=== PATIENT | female | born 1945 | race Caucasian/White ===

== ENCOUNTER 2016-09-11 08:48 | Outpatient (CLI) | payer MEDICARE, BC ==
[~2016-09-11] VITALS: Ht 167.6 cm; Wt 79.5 kg
--- NOTE | ~2016-09-11 | HEMODYNAMI ---
PATIENT:CELENA TOMPKINS MEDICAL RECORD: [id number] : 47 LOCATION:D.CAT ADMISSION DATE: 09/11/16 Generatedon:09/11/201612:48 Patient name: CELENA TOMPKINS Patient #: [id number] SSN: : 1945 Date of study: 09/11/2016 Page: Of Hemodynamic Procedure Report Patient Data Patient Demographics Procedure consent was obtained First Name: CELENA Gender: Female Last Name: TURNER : 1945 Middle Initial: A Age: 71 year(s) Patient #: [id number] Race: Additional ID: [id number] Contact details Address: [address] [place] [address] State: [place] City: [place] Zip code: [address] Past Medical History History of disease Date Diagnosis Comments CAD Allergies Allergen Reaction Date Comments Reported Sulfa drugs 12/26/2014 Sulfa drugs 09/11/2016 Admission Admission Data Admission Date: 09/11/2016 Admission Time: 8:48 Lab Results Lab Result Date: 09/11/2016 Lab Result Time: 0:00 Biochemistry Name Units Result Min Max Creatinine mg/dl 1.1 --(--*-)-- 0.6 1.3 CBC Name Units Result Min Max Hemoglobin g/dl 10.7 *-(----)-- 13.5 17.5 Procedure Procedure Types Cath Procedure Diagnostic Procedure [facility] w/Coronaries FFR/IVUS Intra-Coronary IVUS Initial PCI Procedure Coronary Stent Initial Miscellaneous Procedures Moderate Sedation up to 30 minutes Procedure Description Procedure Date Procedure Date: 09/11/2016 Procedure Start Time: 12:28 Procedure End Time: 12:48 Procedure Staff Name Function Rosales Whyte MD Performing Physician Filipe Sotomayor RT Scrub Mariaa Christine RN Nurse Enma Mejia RT Monitor Procedure Data Cath Procedure Fluoroscopy Diagnostic fluoroscopy Total fluoroscopy Time: 4 time: 4 min min Diagnostic fluoroscopy Total fluoroscopy dose: 381 dose: 381 mGy mGy Contrast Material Contrast Material Type Amount (ml) Isovue 300 94 Entry Location Entry Primary Successful Side Size Upsize Upsize Entry Closure Succes sful Closure Location (Fr) 1 (Fr) 2 (Fr) Remarks Device Remarks Femoral Right 5 Fr 6 Fr Exoseal artery Short Estimated blood loss: 10 ml Diagnostic catheters Device Type Used For End Catheter Placement Cordis 5Fr Pigtail LV Angiography Catheter (MP) Cordis 5Fr JL 4.0 Left Coronary Catheter (MP) Angiography Cordis 5Fr 3DRC Catheter Right Coronary (MP) Angiography Procedure Complications No complications Procedure Medications Medication Administration Route Dosage Oxygen NC 2 l/min Heparin Flush Bag added to field 2 bags (1000units/500ml NS) Lidocaine 2% added to field 20 Versed I.V. 1 mg Fentanyl I.V. 50 mcg Versed I.V. 1 mg Fentanyl I.V. 50 mcg Fentanyl I.V. 50 mcg Versed I.V. 1 mg Heparin Bolus I.V. 4000 units Hemodynamics Rest HGB: 10.7 (g/dl) Heart Rate: 63 (bpm) Snapshots Pre Cath Intra NCS Post Cath Vital Signs Time Heart Resp SPO2 etCO2 [id number] NIBP (mmHg) Rhythm Pain Sedation Rate (ipm) (%) (mmHg) (mmHg) Status Level (bpm) 12:08:19 64 23 100 0 0 144/77(124) NSR 0 (11) 10(A) , No pain 12:13:19 63 16 100 0 0 Measuring NSR 0 (11) 10(A) , No pain 12:13:22 63 16 99 0 0 133/68(104) NSR 0 (11) 10(A) , No pain 12:17:41 62 16 95 0 0 134/71(115) NSR 0 (11) 10(A) , No pain 12:22:01 61 16 96 0 0 125/65(88) NSR 0 (11) 10(A) , No pain 12:26:17 62 16 97 0 0 130/65(88) NSR 0 (11) 10(A) , No pain 12:30:31 61 16 98 0 0 114/73(94) NSR 0 (11) 10(A) , No pain 12:34:42 63 16 98 0 0 126/65(92) NSR 0 (11) 9(A) , No pain 12:38:59 65 16 98 0 0 133/62(91) NSR 0 (11) 9(A) , No pain 12:42:56 65 16 98 0 0 123/67(99) NSR 0 (11) 9(A) , No pain 12:47:10 66 19 98 0 0 129/65(108) NSR 0 (11) 10(A) , No pain Medications Time Medication Route Dose Verified Delivered Reason Notes Effectiveness by by 12:07:20 Oxygen NC 2 Rosales Mariaa Per physician l/min Isabell Christine RN 12:07:27 Heparin Flush added 2 Rosales Rosales used for Bag to bags Isabell Whyte MD procedure (1000units/500ml field NS) 12:07:34 Lidocaine 2% added 20ml Rosales Rosales used for to vial Isabell Whyte MD procedure field 12:27:18 Versed I.V. 1 mg Rosales Mariaa for sedation Isabell Christine RN 12:27:24 Fentanyl I.V. 50 Rosales Mariaa for sedation mcg Isabell Christine RN 12:29:14 Versed I.V. 1 mg Rosales Mariaa for sedation Isabell Christine RN 12:29:21 Fentanyl I.V. 50 Rosales Mariaa for sedation mcg Isabell Christine RN 12:31:29 Fentanyl I.V. 50 Rosales Mariaa for sedation mcg Isabell Christine RN 12:31:37 Versed I.V. 1 mg Rosales Mariaa for sedation Isabell Christine RN 12:39:20 Heparin Bolus I.V. 4000 Rosales Mariaa for dose units Isabell Christine RN anticoagulation verified [facility] whyte Procedure Log Time Note 11:56:01 Enma Counts RT(R) sent for patient. Start room use. 11:56:02 Time tracking: Regular hours 11:56:07 Plan of Care:Hemodynamics will remain stable., Cardiac rhythm will remain stable., Comfort level will be maintained., Respiratory function will remain adequate., Patient/ family verbilizes understanding of procedure., Procedure tolerated without complication., Recovers from procedure without complications.. 12:06:34 Patient received from Pre/Post Procedure Room to [facility] 1 Alert and oriented. Tansferred to table in Supine position. 12:06:35 Warm blankets applied, and shea hugger turned on for patient comfort. 12:06:36 Correct patient and procedure confirmed by team. 12:06:37 Signed procedure consent form obtained from patient. 12:06:38 ECG and BP/O2 sat monitors applied to patient. 12:06:39 Full Disclosure recording started 12:07:12 Vital chart was started 12:07:20 Oxygen 2 l/min NC was administered by Mariaa Christine RN; Per physician; 12:07:27 Heparin Flush Bag (1000units/500ml NS) 2 bags added to field was administered by Rosales Whyte MD; used for procedure; 12:07:34 Lidocaine 2% 20ml vial added to field was administered by Rosales Whyte MD; used for procedure; 12:12:58 Baseline sample Acquired. 12:13:03 Rhythm: sinus rhythm 12:13:18 H&P Date Dictated: 09/10/2016 Within 30 days and on chart., H&P Addendum completed by physician on day of procedure. (MUST COMPLETE FOR ALL OUTPATIENTS). 12:13:21 Pre-procedure instructions explained to patient. 12:13:21 Pre-op teaching completed and patient verbalized understanding. 12:13:23 Family in patients room. 12:13:25 Patient NPO since Midnight. 12:13:34 Patient allergic to Sulfa drugs 12:13:36 Is the patient allergic to Iodine/contrast media? No. 12:13:40 Is patient on blood thinner?Yes 12:13:42 ACC The patient was administered the following blood thiners within the last 24 hours: ACCPlavix 12:14:05 Patient diabetic? No. 12:14:08 Previous problem with sedation/anesthesia? No ? 12:14:09 Snore? Yes 12:14:10 Sleep apnea? No 12:14:11 Deviated septum? No 12:14:12 Opens mouth fully? Yes 12:14:13 Sticks out tongue? Yes 12:14:18 Dentures? Yes ? 12:14:19 Airway obstruction? No ? 12:14:24 Pre procedure: right dorsailis pedis pulse 2+ Normal; easily identifiable; not easily obliterated 12:14:26 Patient pain scale 0/10 ?. 12:14:33 IV patent on arrival in left hand with 0.9% NaCl at KVO. 12:18:48 Lab Result : Hemoglobin 10.7 g/dl 12:18:48 Lab Result : Creatinine 1.1 mg/dl 12:18:55 Lab results completed and on chart. 12:18:59 Right groin area was prepped with chlora-prep and draped in sterile fashion 12:19:00 Alarms reviewed by R. N. 12:19:01 Sharps counted by scrub and verified by R.N. 12:19:06 Use device set Femoral Dx 12:19:07 Acist Syringe opened to sterile field. 12:19:08 Bag Decanter opened to sterile field. 12:19:08 Medline Cath Pack opened to sterile field. 12:19:09 Terumo 5Fr Ridge[place]st Sheath opened to sterile field. 12:19:09 St Ben 260cm J .035 wire opened to sterile field. 12:19:10 Acist Hand Control opened to sterile field. 12:19:11 Acist Manifold opened to sterile field. 12:19:11 Diagnostic Infinity 5Fr Multipack catheter opened to sterile field. 12:19:12 Tegaderm 4 x 4 opened to sterile field. 12:19:44 Physician paged 12:24:15 Zero performed for pressure channel P1 12:25:18 Zero performed for pressure channel P1 12:25:27 Zero performed for pressure channel P1 12:26:56 Final Timeout: patient, procedure, and site verified with staff and physician. All members of the team are in agreement. 12:27:00 Right groin site verified by team. 12:27:03 Physical assessment completed. ASA score P 2 - A patient with mild systemic disease as per Rosales Whyte MD. 12:27:05 Sedation plan: IV Moderate Sedation Versed, Fentanyl 12::18 Versed 1 mg I.V. was administered by Mariaa Christine RN; for sedation; 12::24 Fentanyl 50 mcg I.V. was administered by Mariaa Christine RN; for sedation; 12::17 Procedure started. 12::20 Local anesthetic to right femoral artery with Lidocaine 2% by Rosales Whyte MD.INITIAL ACCESS ONLY 12::14 Versed 1 mg I.V. was administered by Mariaa Christine RN; for sedation; :14 A 5 Fr sheath was inserted into the Right Femoral artery 12:29:20 A Cordis 5Fr Pigtail Catheter (MP) was advanced over the wire and used for LV Angiography. 12:29:21 Fentanyl 50 mcg I.V. was administered by Mariaa Christine RN; for sedation; 12:30:01 LV gram done using JC 12:30:04 Injector settings: Ml/sec: 10, Volume: 20, 12:30:09 EF : 60 % 12:30:10 Catheter removed. 12:30:18 A Cordis 5Fr JL 4.0 Catheter (MP) was advanced over the wire and used for Left Coronary Angiography. 12:31:01 Catheter removed. 12:31:09 A Cordis 5Fr 3DRC Catheter (MP) was advanced over the wire and used for Right Coronary Angiography. 12:31:29 Fentanyl 50 mcg I.V. was administered by Mariaa Christine RN; for sedation; 12:31:37 Versed 1 mg I.V. was administered by Mariaa Christine RN; for sedation; 12:32:13 Catheter removed. 12:32:44 Fotolia BasixCompak Inflation Kit opened to sterile field. 12:32:44 Venturi Wirelessisper J 300cm 0.014 guide wire opened to sterile field. 12:32:45 Terumo 6Fr Ridgecrest Sheath opened to sterile field. 12:33:06 Sheath upsized to a 6 Fr Short. 12:34:13 6 Fr XBLAD 3.5 guide catheter was inserted over the wire 12:34:51 Whisper wire advanced. 12:35:06 IVUS catheter advanced over wire. 12:38:16 IVUS pass to LAD lesion performed. 12:38:25 IVUS catheter removed over wire. 12:39:20 Heparin Bolus 4000 units I.V. was administered by Mariaa Christine RN; for anticoagulation; dose verified wt dr whyte 12:40:29 Inflation Number: 1 A Medtronic Integrity 4.0 X 12 stent was prepped and advanced across the Mid LAD. The stent was deployed at 11 CEZAR for 0:08 (min:sec). 12:40:49 Stent catheter was removed intact over wire. 12:40:49 Wire removed. 12:40:50 Guide catheter removed. 12:41:06 Cordis 6Fr Exoseal opened to sterile field. 12:41:13 Sheath removed intact; hemostasis achieved with Exoseal to the Right Femoral artery. 12:41:15 Procedure ended.(Physican Out) 12:41:23 Fluoroscopy time 04.00 minutes. 12:41:30 Fluoroscopy dose: 381 mGy 12:41:30 Flurop Dose total: 381 12:41:33 Contrast amount:Isovue 300 94ml. 12:41:35 Sharps counted by scrub and verified by R.N. 12:41:36 Insertion/operative site no bleeding no hematoma. 12:42:00 Post-op/insertion site Right Femoral artery dressed using a 4 x 4 and Tegaderm. 12:42:04 Post right femoral artery:stable, hematoma 12:42:11 Post Procedure Pulses reassessed and unchanged 12:42:15 Post-procedure physical assessment completed. ASA score P 2 - A patient with mild systemic disease as per Rosales Whyte MD. 12:42:17 Post procedure rhythm: unchanged. 12:42:20 Estimated blood loss: 10 ml 12:42:21 Post procedure instruction explained to patient.Patient verbalizes understanding. 12:42:21 Patient needs reinforcement of post procedure teaching. 12:42:40 Procedure type changed to Cath procedure, Diagnostic procedure, LHC, LHC w/Coronaries, FFR/IVUS, Intra-Coronary IVUS Initial, PCI procedure, Coronary Stent Initial, Miscellaneous Procedures, Moderate Sedation up to 30 minutes 12:42:44 Procedure Complication : No complications 12:42:48 See physician's report for complete and final results. 12:43:34 Okay [place] Eagleye IVUS Catheter opened to sterile field. 12:43:56 Cordis 6FR XBLAD 4.0 guide catheter opened to sterile field. 12:45:08 Procedure and supply charges have been captured, reviewed, submitted and are correct. 12:48:19 Vital chart was stopped 12:48:21 Report given to Pre/Post Procedure Room. 12:48:24 Patient transfered to Pre/Post Procedure Room with Stretcher. 12:48:35 Procedure ended. 12:48:35 Full Disclosure recording stopped 12:48:43 End room use (Document Last) Intervention Summary Intervention Notes Time ActionType Lesion and Equipment Action# Pressure Duration Attributes Used 12:40:29 Place stent Mid LAD Medtronic 1 11 00:08 Integrity 4.0 X 12 stent Device Usage Item Name Manufacture Quantity Catalog Hospital Part Current Minimal L ot# / Number Charge Number Stock Stock Serial# Code Acist Acist 1 59076 [id number] 088137 288606 20 Syringe Medical Systems Inc Bag Microtek 1 2002S 390728 32573 327999 5 Decanter Medical Inc. Medline Cardinal 1 [id number] 383453 06112 179031 5 Cath Pack Health Terumo 5Fr Terumo 1 [id number] 812675 533100 374781 [address] St Ben 1 214527 741735 633279 410498 30 260cm J .035 wire Acist Hand Acist 1 27388 957973 160458 080690 5 Control Medical Systems Inc Acist Acist 1 86596 687964 512660 818025 5 Manifold Medical Systems Inc Diagnostic Cardinal 1 [id number] 431973 34671 757472 30 Infinity Health 5Fr Multipack catheter Tegaderm 4 3M 1 1626W 647773 283861 255032 5 x 4 Cordis 5Fr Cardinal 1 726962 5 Pigtail Health Catheter (MP) Cordis 5Fr Cardinal 1 602678 5 JL 4.0 Health Catheter (MP) Cordis 5Fr Cardinal 1 223113 5 3DRC Health Catheter (MP) Merit Merit 1 [id number] 633260 853014 437579 15 BasixCompak Medical Inflation Kit Trujillo Trujillo 1 [id number] 146762 854186 187637 5 Whisper J Vascular 300cm 0.014 guide wire Terumo 6Fr Terumo 1 [id number] 000308 438026 340252 40 [place]st Sheath Medtronic Medtronic 1 [id number] 346903 147844 423137 1 0 [id number] Integrity 4.0 X 12 stent Cordis 6Fr Cardinal 1 EX600 446891 631876 041246 10 Exoseal Health Okay Okay 1 [id number] 844581 539102 935934 8 [place] Eagleye IVUS Catheter Cordis 6FR Cardinal 1 [id number] 111307 048804 271591 3 XBLAD 4.0 Health guide catheter Signature Audit Nerinx Stage Time Signature Unsigned Intra-Procedure 09/11/2016 Enma 12:48:53 PM Counts RT(R) Signatures Monitor : Enma Signature : Counts RT Date : Time : [place] [address] [place] [address]
[~2016-09-11 08:48] MED LIST: BAYER CHEWABLE81 MG PO; CALCIUM 600+D T1 TA1 PO; HYDROCODON-ACE1 EAC7 PO; PACERONE200 MG PO; PLAVIX75 MG; PLAVIX75 MG PO; PRILOSEC20 MG PO; SYNTHROID50 MCG PO; TOPROL XL50 MG PO; VALIUM 2 MG TAB2 MG PO; VITAMIN D2000 UNIT PO; ZYRTEC10 MG PO
[2016-09-11 09:49] VITALS: BP 140/64; Ht 167.6 cm; Wt 79.5 kg
[2016-09-11] MEDS ORDERED: PLAVIX75 MG PO (09:52)
[2016-09-11 10:17] LABS: ANION GAP 14.3 mmol/L (8-16); CALCIUM 8.7 mg/dL (8.5-10.1); CARBON DIOXIDE 21.2 mmol/L (21.0-32.0); CREATININE - SERUM 1.1 mg/dL (0.6-1.3); POTASSIUM - SERUM 4.5 mmol/L (3.5-5.1)
[2016-09-11 10:23] LABS: BASOPHILS 0.3 % (0.0-2.0); HEMATOCRIT 33.3 % (36.0-48.0); HEMOGLOBIN 10.7 g/dL (12-16); IMMATURE GRANULOCYTES 0.2 % (0-5); LYMPHOCYTES 13.2 % (15-50); MCH 30.9 pg (26.0-34.0); MCHC 32.1 g/dL (31.0-37.0); MCV 96.2 fL (80.0-100.0); MEAN PLATELET VOLUME 10.3 fL (7.4-10.4); MONOCYTES 8.6 % (2-11); NEUTROPHILS 75.7 % (40-80); PLATELET COUNT 210 10x3/uL (130-400); RBC 3.46 10x6/uL (4.00-5.40); RDW 14.5 % (11.5-14.5); WBC 6.5 10x3/uL (4.8-10.8)
--- NOTE | 2016-09-11 15:36 | NUR ---
1315-RESTING QUIETLY, RIGHT GROIN CDI, NO HEMATOMA OR BLEEDING NOTED, AT SIDE 1345-NO CHANGES IN RIGHT GROIN, DENIES NEEDS
--- NOTE | 2016-09-11 18:22 | NUR ---
1645-IV D'C WITH CATH TIP INTACT, UP TO RESTROOM- VOID, WRITTEN AND VERBAL INSTRUCTIONS GIVEN. DENIES CHEST PAIN OR NEEDS. D'C HOME
--- NOTE | 2016-09-17 14:38 | OP ---
PATIENT NAME: CELENA TOMPKINS MEDICAL RECORD: [id number] :47 LOCATION:D.CAT ADMISSION DATE: SURGEON: STANFORD DENNY MD DATE OF OPERATION: 09/11/2016 PROCEDURES: 1. PTCA stent of the LAD. 2. Left heart catheterization. 3. Selective coronary angiography. 4. Left ventriculogram. 5. Intravascular ultrasound of the LAD. DESCRIPTION OF THE PROCEDURE: After informed consent was obtained and after detailed explanation of risks, benefits as well as alternative therapies, the patient elected to proceed with angiogram and angioplasty. The right femoral area was prepped and draped in normal sterile fashion. The right femoral artery was cannulated via modified Seldinger technique with placement of 6-Kazakh sheath. All catheters exchanged through this sheath. FINDINGS: The left ventriculogram was performed in the standard 30-degree JC view reveals good cardiac wall motion throughout all segments. Overall ejection fraction estimated at 60%. SELECTIVE CORONARY ANGIOGRAPHY: 1. Left main showed no significant angiographic disease. 2. Left anterior descending has a 69% stenosis confirmed by intravascular ultrasound. 3. Left circumflex shows ____ irregularities, but no flow-limiting stenosis. 4. Right coronary artery has ____ irregularities, but no flow-limiting stenosis throughout. PERCUTANEOUS TRANSLUMINAL CORONARY ANGIOPLASTY STENT OF THE LEFT ANTERIOR DESCENDING: The stent used is 4.0 x 12 mm Integrity. Result was 0% residual stenosis. OVERALL IMPRESSION: Successful percutaneous transluminal coronary angioplasty stent of the left anterior descending going from 69% initial stenosis to 0% residual. TRANSINT:[id number] Voice Confirmation ID: [id number] DOCUMENT ID: [id number] STANFORD DENNY MD at 1438 CC: [id number] DICTATION DATE: 09/11/16 1247 [place]: 09/11/16 2221 [facility] CLI 09/11/16 [place] [address]
== END 2016-09-11 17:00 | disposition home or self-care (01) ==
LOC: D.CATH 08:48
PROVIDERS: Internal Medicine Interventional Cardiology
DX: I25.119 Atherosclerotic heart disease of native coronary artery with unspecified angina pectoris (principal)

== ENCOUNTER → 2016-10-15 12:24 | Outpatient (CLI) | payer MEDICARE, BC ==
[2016-09-11 09:49] VITALS: BMI 28.3
[2016-10-15 13:43] LABS: BASOPHILS 0.3 % (0-2); EOSINOPHILS 2.6 % (0-7); HEMATOCRIT 33.2 % (36.0-48.0); HEMOGLOBIN 10.5 g/dL (12-16); IMMATURE GRANULOCYTES 0.3 % (0-5); LYMPHOCYTES 21.2 % (15-50); MCH 30.6 pg (26.0-34.0); MCHC 31.6 g/dL (31.0-37.0); MCV 96.8 fL (80.0-100.0); MEAN PLATELET VOLUME 10.3 fL (7.4-10.4); MONOCYTES 8.8 % (2-11); NEUTROPHILS 66.8 % (40-80); PLATELET COUNT 242 10x3/uL (130-400); RBC 3.43 10x6/uL (4.00-5.40); RDW 14.7 % (11.5-14.5)
[2016-10-15 13:56] LABS: ALBUMIN 3.2 g/dL (3.4-5.0); ANION GAP 13.9 mmol/L (8-16); BILIRUBIN - TOTAL 0.28 mg/dL (0.2-1.3); CALCIUM 8.6 mg/dL (8.5-10.1); CARBON DIOXIDE 22.9 mmol/L (21.0-32.0); CREATININE - SERUM 1.3 mg/dL (0.6-1.3); POTASSIUM - SERUM 3.8 mmol/L (3.5-5.1); PROTEIN - SERUM 6.2 g/dL (6.4-8.2)
== END | disposition home or self-care (01) ==
LOC: D.LABREF 12:24
PROVIDERS: Student in an Organized Health Care Education/Training Program
DX: B35.9 Dermatophytosis, unspecified (principal)

== ENCOUNTER → 2016-11-05 09:53 | Outpatient (CLI) | payer MEDICARE, BC ==
[2016-09-11 09:49] VITALS: BMI 28.3
[2016-11-05 11:09] LABS: ANION GAP 13.9 mmol/L (8-16); BILIRUBIN - TOTAL 0.17 mg/dL (0.2-1.3); CALCIUM 8.9 mg/dL (8.5-10.1); CARBON DIOXIDE 22.1 mmol/L (21.0-32.0); CREATININE - SERUM 1.4 mg/dL (0.6-1.3); PROTEIN - SERUM 6.1 g/dL (6.4-8.2)
== END | disposition home or self-care (01) ==
LOC: D.LABREF 09:53
PROVIDERS: Student in an Organized Health Care Education/Training Program
DX: B48.8 Other specified mycoses (principal)

== ENCOUNTER → 2016-11-12 12:26 | Outpatient (CLI) | payer MEDICARE, BC ==
[2016-09-11 09:49] VITALS: BMI 28.3
== END | disposition home or self-care (01) ==
LOC: D.LABREF 12:26
DX: B48.8 Other specified mycoses (principal)

== ENCOUNTER → 2016-12-10 12:29 | Outpatient (CLI) | payer MEDICARE, BC ==
[2016-09-11 09:49] VITALS: BMI 28.3
[2016-12-10 14:36] LABS: BASOPHILS 0.4 % (0-2); HEMATOCRIT 33.1 % (36.0-48.0); HEMOGLOBIN 10.2 g/dL (12-16); IMMATURE GRANULOCYTES 0.1 % (0-5); LYMPHOCYTES 18.9 % (15-50); MCHC 30.8 g/dL (31.0-37.0); MCV 97.4 fL (80.0-100.0); MEAN PLATELET VOLUME 10.8 fL (7.4-10.4); MONOCYTES 8.3 % (2-11); NEUTROPHILS 71.3 % (40-80); PLATELET COUNT 262 10x3/uL (130-400); RDW 14.7 % (11.5-14.5)
[2016-12-10 14:54] LABS: ALBUMIN 3.3 g/dL (3.4-5.0); ANION GAP 19.4 mmol/L (8-16); BILIRUBIN - TOTAL 0.23 mg/dL (0.2-1.3); CALCIUM 9.7 mg/dL (8.5-10.1); CARBON DIOXIDE 17.6 mmol/L (21.0-32.0); CREATININE - SERUM 1.2 mg/dL (0.6-1.3); PROTEIN - SERUM 6.6 g/dL (6.4-8.2)
== END | disposition home or self-care (01) ==
LOC: D.LABREF 12:29
PROVIDERS: Student in an Organized Health Care Education/Training Program
DX: B48.8 Other specified mycoses (principal)

== ENCOUNTER → 2016-12-10 19:47 | Outpatient (CLI) | payer MEDICARE, BC ==
[2016-09-11 09:49] VITALS: BMI 28.3
== END | disposition home or self-care (01) ==
LOC: D.LABREF 19:47
DX: B48.8 Other specified mycoses (principal); K50.90 Crohn's disease, unspecified, without complications; Z79.899 Other long term (current) drug therapy

== ENCOUNTER 2017-01-07 12:40 | Outpatient (CLI) | payer MEDICARE, BC ==
[2017-01-07 13:58] VITALS: Ht 167.6 cm
== END 2017-01-07 14:00 ==
LOC: D.OPS 12:40
DX: M81.0 Age-related osteoporosis without current pathological fracture (principal)

== ENCOUNTER → 2017-01-10 12:21 | Outpatient (CLI) | payer MEDICARE, BC ==
[2017-01-10 12:45] LABS: BASOPHILS 0.3 % (0-2); HEMATOCRIT 32.5 % (36.0-48.0); HEMOGLOBIN 10.1 g/dL (12-16); IMMATURE GRANULOCYTES 0.1 % (0-5); MCH 29.6 pg (26.0-34.0); MCHC 31.1 g/dL (31.0-37.0); MCV 95.3 fL (80.0-100.0); MEAN PLATELET VOLUME 10.7 fL (7.4-10.4); MONOCYTES 9.3 % (2-11); NEUTROPHILS 64.3 % (40-80); PLATELET COUNT 254 10x3/uL (130-400); RBC 3.41 10x6/uL (4.00-5.40); WBC 7.3 10x3/uL (4.8-10.8)
[2017-01-10 12:58] LABS: ALBUMIN 3.2 g/dL (3.4-5.0); ANION GAP 16.2 mmol/L (8-16); BILIRUBIN - TOTAL 0.22 mg/dL (0.2-1.3); CALCIUM 8.4 mg/dL (8.5-10.1); CARBON DIOXIDE 22.2 mmol/L (21.0-32.0); POTASSIUM - SERUM 4.4 mmol/L (3.5-5.1); PROTEIN - SERUM 6.5 g/dL (6.4-8.2)
== END | disposition home or self-care (01) ==
LOC: D.LABREF 12:21
PROVIDERS: Student in an Organized Health Care Education/Training Program
DX: Z51.81 Encounter for therapeutic drug level monitoring (principal); Z79.899 Other long term (current) drug therapy; B48.8 Other specified mycoses

== ENCOUNTER → 2017-02-25 11:11 | Outpatient (CLI) | payer MEDICARE, BC ==
[2017-02-25 15:14] LABS: BASOPHILS 0.4 % (0-2); EOSINOPHILS 2.5 % (0-7); HEMATOCRIT 35.4 % (36.0-48.0); HEMOGLOBIN 11.2 g/dL (12-16); IMMATURE GRANULOCYTES 0.1 % (0-5); LYMPHOCYTES 23.7 % (15-50); MCH 30.2 pg (26.0-34.0); MCHC 31.6 g/dL (31.0-37.0); MCV 95.4 fL (80.0-100.0); MEAN PLATELET VOLUME 10.5 fL (7.4-10.4); MONOCYTES 8.3 % (2-11); PLATELET COUNT 260 10x3/uL (130-400); RBC 3.71 10x6/uL (4.00-5.40); RDW 16.8 % (11.5-14.5); WBC 7.6 10x3/uL (4.8-10.8)
[2017-02-25 15:29] LABS: ALBUMIN 3.2 g/dL (3.4-5.0); ANION GAP 18.2 mmol/L (8-16); BILIRUBIN - TOTAL 0.2 mg/dL (0.2-1.3); CALCIUM 8.6 mg/dL (8.5-10.1); CARBON DIOXIDE 19.8 mmol/L (21.0-32.0); CREATININE - SERUM 1.1 mg/dL (0.6-1.3); PROTEIN - SERUM 6.1 g/dL (6.4-8.2)
== END | disposition home or self-care (01) ==
LOC: D.RAD 11:11
PROVIDERS: Student in an Organized Health Care Education/Training Program
DX: M79.604 Pain in right leg (principal); M79.605 Pain in left leg

== ENCOUNTER 2017-06-02 07:23 | Outpatient (CLI) | payer MEDICARE, BC ==
[~2017-06-02] VITALS: Ht 167.6 cm; Wt 73.6 kg
--- NOTE | ~2017-06-02 | HEMODYNAMI ---
PATIENT:CELENA TOMPKINS MEDICAL RECORD: [id number] : 47 LOCATION:D.CAT ADMISSION DATE: 06/02/17 Generatedon:06/02/20179:53 Patient name: CELENA TOMPKINS Patient #: [id number] SSN: : 1945 Date of study: 06/02/2017 Page: Of Hemodynamic Procedure Report Patient Data Patient Demographics Procedure consent was obtained First Name: CELENA Gender: Female Last Name: TURNER : 1945 Middle Initial: A Age: 71 year(s) Patient #: [id number] Race: Additional ID: [id number] Contact details [address]: [address] [place] [address] State: [place] City: [place] Zip code: [address] Past Medical History History of disease Date Diagnosis Comments CAD Allergies Allergen Reaction Date Comments Reported Sulfa drugs 12/26/2014 Sulfa drugs 09/11/2016 Sulfa drugs 06/02/2017 Admission Admission Data Admission Date: 06/02/2017 Admission Time: 7:23 Procedure Procedure Types Cath Procedure Diagnostic Procedure [facility] w/Coronaries Miscellaneous Procedures Moderate Sedation up to 15 minutes Procedure Description Procedure Date Procedure Date: 06/02/2017 Procedure Start Time: 9:41 Procedure End Time: 9:52 Procedure Staff Name Function Rosales Whyte MD Performing Physician Enma Mejia RT Monitor Filipe Sotomayor RT Scrub Saravanan Delgado RN Nurse Procedure Data Cath Procedure Fluoroscopy Diagnostic fluoroscopy Total fluoroscopy Time: 1.2 time: 1.2 min min Diagnostic fluoroscopy Total fluoroscopy dose: 351 dose: 351 mGy mGy Contrast Material Contrast Material Type Amount (ml) Isovue 300 59 Entry Location Entry Primary Successful Side Size Upsize Upsize Entry Closure Succes sful Closure Location (Fr) 1 (Fr) 2 (Fr) Remarks Device Remarks Femoral Right 5 Fr Exoseal artery Estimated blood loss: 10 ml Diagnostic catheters Device Type Used For End Catheter Placement MULTIPACK Pigtail 5 Fr LV Angiography catheter MULTIPACK JL 4.0 5Fr Left Coronary catheter Angiography MULTIPACK 3DRC 5Fr Right Coronary catheter Angiography Procedure Complications No complications Procedure Medications Medication Administration Route Dosage 0.9% NaCl I.V. 100 ml/hr Oxygen NC 2 l/min Heparin Flush Bag added to field 2 bags (1000units/500ml NS) Lidocaine 2% added to field 20 Versed I.V. 1 mg Fentanyl I.V. 50 mcg Versed I.V. 0.5 mg Fentanyl I.V. 25 mcg Hemodynamics Rest Heart Rate: 65 (bpm) Snapshots Pre Cath Intra NCS Post Cath Vital Signs Time Heart Resp SPO2 etCO2 NIBP (mmHg) Rhythm Pain Sedation Rate (ipm) (%) (mmHg) Status Level (bpm) 9:20:23 63 13 95 142/71(97) NSR 0 (11) 10(A) , No pain 9:25:16 64 14 99 30.9 136/38(92) NSR 0 (11) 10(A) , No pain 9:30:00 64 13 100 34.6 132/65(97) NSR 0 (11) 10(A) , No pain 9:34:45 63 16 100 29.3 123/64(93) NSR 0 (11) 10(A) , No pain 9:39:30 63 15 100 33.9 123/63(89) NSR 0 (11) 9(A) , No pain 9:44:11 56 20 100 33.9 111/64(85) NSR 0 (11) 9(A) , No pain 9:49:28 62 12 100 34.6 133/73(110) NSR 0 (11) 9(A) , No pain Medications Time Medication Route Dose Verified Delivered Reason Notes Effec tiveness by by 9:39:06 0.9% NaCl I.V. 100 Rosales Saravanan Per ml/hr Isabell Delgado physician RN 9:39:21 Oxygen NC 2 Saravanan Saravanan Per l/min Danny Delgado physician RN RN 9:39:34 Heparin Flush added 2 Saravanan Saravanan used for Bag to bags Susieigan Danny procedure (1000units/500ml field RN RN NS) 9:39:46 Lidocaine 2% added 20ml Saravanan Saravanan for local to vial Lorigan Lorigan anesthetic field RN RN 9:40:05 Versed I.V. 1 mg Saravanan Saravanan for Lorigan Lorigan sedation RN RN 9:40:16 Fentanyl I.V. 50 Saravanan Saravanan for mcg Lorigan Lorigan sedation RN RN 9:42:14 Versed I.V. 0.5 Saravanan Saravanan for mg Lorigan Lorigan sedation RN RN 9:42:23 Fentanyl I.V. 25 Saravanan Saravanan for mcg Lorigan Lorigan sedation RN developmental psychologist Log Time Note 8:58:03 Time tracking: Regular hours 8:58:06 Plan of Care:Hemodynamics will remain stable., Cardiac rhythm will remain stable., Comfort level will be maintained., Respiratory function will remain adequate., Patient/ family verbilizes understanding of procedure., Procedure tolerated without complication., Recovers from procedure without complications.. 9:04:34 Enma Counts RT(R) sent for patient. Start room use. 9:10:16 Patient received from Pre/Post Procedure Room to CCL 1 Alert and oriented. Tansferred to table in Supine position. 9:18:12 Baseline sample Acquired. 9:19:22 Warm blankets applied, and shea hugger turned on for patient comfort. 9:19:22 Correct patient and procedure confirmed by team. 9:19:23 Signed procedure consent form obtained from patient. 9:19:24 ECG and BP/O2 sat monitors applied to patient. 9:19:25 Vital chart was started 9:19:25 Full Disclosure recording started 9:19:37 H&P Date Dictated: 05/20/2017 Within 30 days and on chart., H&P Addendum completed by physician on day of procedure. (MUST COMPLETE FOR ALL OUTPATIENTS). 9:19:39 Pre-procedure instructions explained to patient. 9:19:39 Pre-op teaching completed and patient verbalized understanding. 9:19:41 Family in patients room. 9:19:47 Patient NPO since Midnight. 9:19:54 Patient allergic to Sulfa drugs 9:19:57 Is the patient allergic to Iodine/contrast media? No. 9:20:00 Is patient on blood thinner?No 9:20:02 Patient diabetic? No. 9:20:06 Previous problem with sedation/anesthesia? No ? 9:20:46 Snore? Yes 9:20:47 Sleep apnea? No 9:20:48 Deviated septum? No 9:20:49 Opens mouth fully? Yes 9:20:50 Sticks out tongue? Yes 9:20:51 Airway obstruction? No ? 9:20:54 Dentures? Yes IN 9:20:58 Pre procedure: right dorsailis pedis pulse 2+ Normal; easily identifiable; not easily obliterated 9:21:00 Patient pain scale 0/10 ?. 9:21:09 IV patent on arrival in left hand with 0.9% NaCl at [facility]. 9:21:13 Lab results completed and on chart. 9:21:16 Right groin area was prepped with chlora-prep and draped in sterile fashion 9:21:17 Alarms reviewed by R. N. 9:21:17 Sharps counted by scrub and verified by R.N. 9:21:20 Use device set Femoral Dx 9:21:21 ACIST Syringe (65313) opened to sterile field. 9:21:21 Bag Decanter (2002S) opened to sterile field. 9:21:22 Medline Cath Pack ([id number]) opened to sterile field. 9:21:22 SHEATH 5FR [place] (XSS325) opened to sterile field. 9:21:23 DIAGNOSTIC WIRE .035 260cm J wire (698331) opened to sterile field. 9:21:24 ACIST Hand Control (52645) opened to sterile field. 9:21:25 ACIST Manifold (16592) opened to sterile field. 9:21:25 DIAGNOSTIC Multipack 5Fr catheter set ([id number]) opened to sterile field. 9:21:26 Tegaderm 4 x 4 (1626W) opened to sterile field. 9:21:26 PERCUTANEOUS ENTRY 19GA needle opened to sterile field. 9:26:33 Rhythm: sinus rhythm 9:26:34 Baseline sample Acquired. 9:31:06 Physician paged 9:33:47 Zero performed for pressure channel P1 9:33:52 Zero performed for pressure channel P1 9:37:48 Final Timeout: patient, procedure, and site verified with staff and physician. All members of the team are in agreement. 9:37:50 Right groin site verified by team. 9:37:53 Physical assessment completed. ASA score P 2 - A patient with mild systemic disease as per Rosales Whyte MD. 9:37:57 Sedation plan: IV Moderate Sedation Medication:Versed, Fentanyl 9:39:06 0.9% NaCl 100 ml/hr I.V. was administered by Saravanan Delgado RN; Per physician; 9:39:21 Oxygen 2 l/min NC was administered by Saravanan Delgado RN; Per physician; 9:39:34 Heparin Flush Bag (1000units/500ml NS) 2 bags added to field was administered by Saravanan Delgado RN; used for procedure; 9:39:46 Lidocaine 2% 20ml vial added to field was administered by Saravanan Delgado RN; for local anesthetic; 9:40:05 Versed 1 mg I.V. was administered by Saravanan Delgado RN; for sedation; 9:40:16 Fentanyl 50 mcg I.V. was administered by Saravanan Delgado RN; for sedation; 9:41:50 Procedure started. 9:41:53 Local anesthetic to right femoral artery with Lidocaine 2% by Rosales Whyte MD.INITIAL ACCESS ONLY 9:42:14 Versed 0.5 mg I.V. was administered by Saravanan Delgado RN; for sedation; 9:42:15 A 5 Fr sheath was inserted into the Right Femoral artery 9:42:23 Fentanyl 25 mcg I.V. was administered by Saravanan Delgado RN; for sedation; 9:42:59 A MULTIPACK Pigtail 5 Fr catheter was advanced over the wire and used for LV Angiography. 9:44:03 LV gram done using JC 9:44:04 LV hemodynamics recorded. 9:44:07 Injector settings: Ml/sec: 10, Volume: 20, 9:44:11 EF : 65 % 9:44:13 Catheter removed. 9:44:30 A MULTIPACK JL 4.0 5Fr catheter was advanced over the wire and used for Left Coronary Angiography. 9:46:27 Catheter removed. 9:46:35 A MULTIPACK 3DRC 5Fr catheter was advanced over the wire and used for Right Coronary Angiography. 9:47:30 Catheter removed. 9:47:38 EXOSEAL 5Fr (EX500) opened to sterile field. 9:47:50 Sheath removed intact; hemostasis achieved with Exoseal to the Right Femoral artery. 9:47:52 Procedure ended.(Physican Out) 9:48:05 Fluoroscopy time 01.20 minutes. 9:48:09 Flurop Dose total: 351 9:48:09 Fluoroscopy dose: 351 mGy 9:48:26 Contrast amount:Isovue 300 59ml. 9:48:28 Sharps counted by scrub and verified by R.N. 9:48:30 Insertion/operative site no bleeding no hematoma. 9:48:34 Post-op/insertion site Right Femoral artery dressed using a 4 x 4 and Tegaderm. 9:48:40 Post right femoral artery:stable, clean and dry 9:48:43 Post Procedure Pulses reassessed and unchanged 9:48:47 Post-procedure physical assessment completed. ASA score P 2 - A patient with mild systemic disease as per Rosales Whyte MD. 9:48:50 Post procedure rhythm: unchanged. 9:48:54 Estimated blood loss: 10 ml 9:48:55 Post procedure instruction explained to patient.Patient verbalizes understanding. 9:48:55 Patient needs reinforcement of post procedure teaching. 9:49:05 Procedure type changed to Cath procedure, Diagnostic procedure, LHC, LHC w/Coronaries, Miscellaneous Procedures, Moderate Sedation up to 15 minutes 9:49:10 Procedure Complication : No complications 9:49:13 See physician's report for complete and final results. 9:49:38 Procedure and supply charges have been captured, reviewed, submitted and are correct. 9:52:33 Vital chart was stopped 9:52:35 Report given to Pre/Post Procedure Room. 9:52:39 Patient transfered to Pre/Post Procedure Room with Stretcher. 9:52:49 Procedure ended. 9:52:49 Full Disclosure recording stopped 9:52:54 End room use (Document Last) Device Usage Item Name Manufacture Quantity Catalog Hospital Part Current Minimal Lot# / Number Charge Number Stock Stock Serial# Code ACIST Acist 1 98217 922354 972566 597877 20 Syringe Medical (23893) Systems Inc Bag Decanter Microtek 1 2001S 917701 12218 886504 5 () Medical Inc. Medline Cath Cardinal 1 [id number] 281026 53044 457120 5 [facility] Health ([id number]) SHEATH 5FR Terumo 1 VAR542 065616 840115 787012 40 [place] (ZZP468) DIAGNOSTIC St Ben 1 517665 977892 814367 655484 30 WIRE .035 260cm J wire (176674) ACIST Hand Acist 1 75097 574576 003703 115769 5 Control Medical (00088) Systems Inc ACIST Acist 1 07170 198359 153613 279905 5 Manifold Medical (51505) Systems Inc DIAGNOSTIC Cardinal 1 [id number] 041447 97292 157483 30 Multipack Health 5Fr catheter set (DK2409) Tegaderm 4 x 3M 1 1626W 410491 929738 298036 5 4 (1626W) PERCUTANEOUS Cook Medical 1 Q63109 307915 171561 5 ENTRY 19GA needle MULTIPACK Cardinal 1 984674 5 Pigtail 5 Fr Health catheter MULTIPACK JL Cardinal 1 613474 5 4.0 5Fr Health catheter MULTIPACK Cardinal 1 316233 5 3DRC 5Fr Health catheter EXOSEAL 5Fr Cardinal 1 EX500 472023 866853 920359 10 (EX500) Health Signature Audit [place] Stage Time Signature Unsigned Intra-Procedure 06/02/2017 Enma 9:53:04 AM Counts RT(R) Signatures Monitor : Enma Signature : Counts RT Date : Time : [place] [id number] [facility] [place] [address]
[2017-06-02 07:44] VITALS: BP 103/40; Ht 167.6 cm; Wt 73.6 kg
[2017-06-02 07:54] LABS: BASOPHILS 0.8 % (0-2); EOSINOPHILS 3.5 % (0-7); HEMATOCRIT 37.2 % (36.0-48.0); HEMOGLOBIN 12.2 g/dL (12-16); IMMATURE GRANULOCYTES 0.3 % (0-5); LYMPHOCYTES 22.5 % (15-50); MCH 31.4 pg (26.0-34.0); MCHC 32.8 g/dL (31.0-37.0); MCV 95.9 fL (80.0-100.0); MEAN PLATELET VOLUME 10.7 fL (7.4-10.4); MONOCYTES 8.6 % (2-11); NEUTROPHILS 64.3 % (40-80); PLATELET COUNT 217 10x3/uL (130-400); RBC 3.88 10x6/uL (4.00-5.40); RDW 13.7 % (11.5-14.5); WBC 6.5 10x3/uL (4.8-10.8)
[2017-06-02 08:18] LABS: ANION GAP 13.3 mmol/L (8-16); CALCIUM 9.4 mg/dL (8.5-10.1); CARBON DIOXIDE 25.8 mmol/L (21.0-32.0); CREATININE - SERUM 1.4 mg/dL (0.6-1.3); POTASSIUM - SERUM 4.1 mmol/L (3.5-5.1)
--- NOTE | 2017-06-02 10:00 | NUR ---
1000 RECIEVED TO ROOM VIA STRETCHER FROM [employer] ATTENDANT WITH 5 FR EXOSEAL R/GROIN CDI NO BLEEDING NO HEMATOMA NOTED. REPORTS OF A CLEAN CATH WITH NO INTERVENTION AT THIS TIME. VSS AND FAMILY AT BEDSIDE
--- NOTE | 2017-06-02 10:15 | NUR ---
1015 5 FR EXOSEAL R/GROIN CDI NO BLEEDING NO HEMATOMA NOTED INSTRUCTED PATIENT TO KEEP RLE STRAIGHT WITH HEAD FLAT ON PILLOW
--- NOTE | 2017-06-02 10:41 | NUR ---
PT SLEEPING, AWAKENS EASILY TO VERBAL STIMULI. DENIES ANY C/O AT THIS TIME. DRESSING TO RIGHT GROIN IS CDI, AREA IS SOFT AND NONTENDER. PEDAL PULSES PALPABLE. HOB FLAT. RR EVEN AND NONLABORED. NSR, RATE OF 60. BP IS 118/55. AT BEDSIDE. WILL CONTINUE TO MONITOR.
--- NOTE | 2017-06-02 11:00 | NUR ---
1100 PT DENIES ANY C/O. DRESSING TO RIGHT GROIN IS CDI, AREA SOFT AND NONTENDER. PEDAL PULSES PALPABLE. PT HAS TOLERATED SANDWICH AND PO FLUIDS WITH NO C/O. AT BEDSIDE, CALL LIGHT IN REACH.
--- NOTE | 2017-06-02 11:27 | NUR ---
HOB ELEVATED 45 DEGRESS, DRESSING CDI, PEDAL PULSES PALPABLE. PT DENIES ANY C/O AT THIS TIME.
--- NOTE | 2017-06-02 11:44 | NUR ---
HOB ELEVATED TO 90 DEGREES, DRESSING CDI, GROIN IS SOFT AND NONTENDER. PEDAL PULSES PALPABLE. IV DC'D WITH CATH INTACT. REVIEWED DC INSTRUCTIONS WITH PT AND WHO VERBALIZE UNDERSTANDING.
--- NOTE | 2017-06-02 12:00 | NUR ---
PT HAS DRESSED FOR DC TO HOME. DRESSING TO RIGHT GROIN REMAINS CDI, AREA SOFT AND NONTENDER. ASSISTED PT TO BATHROOM VIA WC AND PT VOIDED QS. PT ESCORTED TO PRVIATE AUTO VIA WC BY NURSE WITH ALL BELONGINGS. DRIVING HER HOME.
--- NOTE | 2017-06-03 12:17 | OP ---
PATIENT NAME: CELENA TOMPKINS MEDICAL RECORD: [id number] :47 LOCATION:D.CAT ADMISSION DATE: SURGEON: STANFORD DENNY MD DATE OF OPERATION: 06/02/2017 PROCEDURES: 1. Left heart catheterization. 2. Selective coronary angiography. 3. Left ventriculogram. INDICATION: Angina and coronary artery disease. PROCEDURE IN DETAIL: After informed consent was obtained after detailed explanation of risks, benefits as well as alternative therapies, the patient elected to proceed with angiogram. The right femoral area was prepped and draped in normal sterile fashion. The right femoral artery was cannulated via modified Seldinger technique with placement of 5-Urdu sheath. All catheters exchanged through this sheath. FINDINGS: The left ventriculogram was performed in standard 30-degree JC view reveals good cardiac wall motion with ejection fraction 65%. SELECTIVE CORONARY ANGIOGRAPHY: 1. Left main showed no significant angiographic disease. 2. Left anterior descending has previously placed stents, these are widely patent with no significant restenosis. No disease elsewise throughout the LAD or its branches. 3. Left circumflex has moderate irregularities, but no flow-limiting stenosis. 4. The right coronary has previously placed stents, these are widely patent with no significant restenosis. No disease elsewise. OVERALL IMPRESSION: Wide patency of all the previously placed stent. No disease elsewise, preserved left ventricular function. Continue medical management of the coronary artery disease and cardiac risk factors. TRANSINT:[id number] Voice Confirmation ID: [id number] DOCUMENT ID: [id number] STANFORD DENNY MD at 1217 CC: [id number] DICTATION DATE: 06/02/17 0955 CLINICAL TRIALS SPECIALIST: 06/02/17 1110 DEP CLI 06/02/17 [facility] [address] [place] [place] [id number]
== END 2017-06-02 12:00 | disposition home or self-care (01) ==
LOC: D.CATH 07:23
PROVIDERS: Internal Medicine Interventional Cardiology
DX: I25.119 Atherosclerotic heart disease of native coronary artery with unspecified angina pectoris (principal); Z95.5 Presence of coronary angioplasty implant and graft; Z01.812 Encounter for preprocedural laboratory examination

== ENCOUNTER 2017-07-22 12:31 | Outpatient (CLI) | payer MEDICARE, BC ==
[~2017-07-22] VITALS: Ht 167.6 cm; Wt 70.5 kg
[2017-07-22 13:48] VITALS: Ht 167.6 cm; Wt 70.5 kg
== END 2017-07-22 14:00 | disposition home or self-care (01) ==
LOC: D.OPS 12:31
DX: M81.0 Age-related osteoporosis without current pathological fracture (principal)

== ENCOUNTER → 2018-01-28 18:11 | Outpatient (CLI) | payer MEDICARE, BC ==
[2017-07-22 13:48] VITALS: BMI 25.0
== END | disposition home or self-care (01) ==
LOC: D.MAMMO 15:30
DX: Z12.31 Encounter for screening mammogram for malignant neoplasm of breast (principal)

== ENCOUNTER 2018-03-11 12:01 | Outpatient (CLI) | payer MEDICARE, BC ==
[~2018-03-11] VITALS: Ht 167.6 cm; Wt 65.5 kg
[2018-03-11 12:31] VITALS: BP 125/66; Ht 167.6 cm; Wt 65.5 kg
== END 2018-03-11 12:55 ==
LOC: D.OPS 12:01
DX: M81.0 Age-related osteoporosis without current pathological fracture (principal); Z01.812 Encounter for preprocedural laboratory examination

== ENCOUNTER 2018-03-28 22:06 | Observation (INO) | payer MEDICARE, BC ==
[~2018-03-28] VITALS: Ht 167.6 cm; Wt 65.9 kg
--- NOTE | ~2018-03-28 | HP ---
PATIENT: CELENA TOMPKINS MEDICAL RECORD: [id number] ACCOUNT: [id number] LOCATION:[address] : [birth year] ADMISSION DATE: 03/28/18 PCP: CAMRON HODGE DO HISTORY AND PHYSICAL EXAMINATION HISTORY OF PRESENT ILLNESS: A 72-year-old female presented to the Emergency Room with a complaint of tightness chest, radiating to the back, identical to prior episodes she has had when she required stent placement. She took a nitro that gave partial relief of her pain and then presented to the Emergency Room for evaluation. Since nitro wore off, the pain resumed. ALLERGIES: SULFA. HOME MEDICATIONS: Amiodarone, calcium supplements, Zyrtec, levothyroxine, metoprolol, omeprazole, vitamin D3. PAST MEDICAL HISTORY: Significant for coronary artery disease, hypertension, hypothyroidism, prior stent placement. REVIEW OF SYSTEMS: GENERAL: No acute change in weight or appetite. HEENT: No cephalgia, visual changes, tinnitus, epistaxis, or dysphagia. CARDIOVASCULAR: Anginal symptoms as noted above, identical to prior episode. PULMONARY: Denies hemoptysis, denies night sweats. GASTROINTESTINAL: Denies hematemesis, hematochezia, or melena. GENITOURINARY: Denies dysuria. MUSCULOSKELETAL: No acute changes. ENDOCRINE: Denies polyuria, polydipsia, or polyphagia. PHYSICAL EXAMINATION: VITAL SIGNS: Temp 98.4, blood pressures last treatment was 81/35, nitropatch was removed as symptoms have improved, respirations 18, O2 sats 97%, blood pressure on admission 129/76 prior to placement of nitropatch. HEENT: Normocephalic, atraumatic. Eyes: Pupils are equally round and reactive. Ears: Canals patent, TMs are intact. Nose: Nares patent without drainage. Throat: No erythema, no exudates. NECK: Supple. No lymphadenopathy, no JVD. HEART: Regular, bradycardic. No S3, S4, no rub. LUNGS: Clear to auscultation bilaterally. Breathing is nonlabored. ABDOMEN: Soft, nontender. Bowel sounds all 4 quadrants. EXTREMITIES: Present times 4. NEUROLOGIC: Intact. SKIN: Warm and dry. No rash. DIAGNOSTIC DATA: EKG: Sinus bradycardia, rate of 55, otherwise normal. ASSESSMENT AND PLAN: 1. Anginal equivalent with known cardiovascular disease. Cardiology consulted. Anticipate cardiac catheterization in the a.m. 2. Hypotensive episodes with nitro patch removed. Cardiology following. 3. Hypothyroid. Resume home medications. Supportive care. TRANSINT:[id number] Voice Confirmation ID: [id number] DOCUMENT ID: [id number] HISTORY AND PHYSICAL [id number] CELENA TOMPKINS, ALEJANDRA MCWILLIAMS at 0926 CC: [id number] DICTATION DATE: 03/29/18 1050 SMALL BRAKE FORM OPERATOR: 03/29/18 1238 ADM IN [facility] [address] [place] [address]
--- NOTE | ~2018-03-28 | EC ---
PATIENT:CELENA TOMPKINS DATE OF SERVICE: 03/28/18 SEX: F MEDICAL RECORD: [id number] DATE OF : 47 LOCATION:[facility] AGE OF PATIENT: 72 ADMISSION DATE: 03/28/18 REFERRING PHYSICIAN: INTERPRETING PHYSICIAN: WANDA CARMONA MD ECHOCARDIOGRAM REPORT ECHO CHARGES 4 ECHO COMPLETE Date: 03/29/18 CLINICAL DIAGNOSIS: MURMUR ECHOCARDIOGRAPHIC MEASUREMENTS (adult normal given) AC root (d.<3.7cm) 2.9 cm LV Septum d (<1.2 cm> 1.2 cm Valve Excursion 0.9 cm LV Septum (systole) 2.0 cm Left Atria (s.<4.0cm> 5.0 cm LVPW d(<1.2cm) 1.5 cm RV (d.<2.3cm) 2.3 cm LVPW (sytole) 1.8 cm LV diastole(<5.6CM) 3.9 cm MV E-F(>70mm/sec) cm LV systole 1.2 cm LVOT Diameter 1.6 cm MV exc.(>10mm) cm Est.ejection fraction (50-75%) % DOPPLER: LVIT cm/sec A 82.0 cm/sec E 97.0 cm/sec LA cm/sec RVSP 42.0 mmHg LVOT 160 cm/sec AOP1/2T m/s Asc. Ao 384 cm/sec RVOT 72.0 cm/sec RA cm/sec PA 102 cm/sec AV Gradient Peak 59.0 mmHg AV Mean 32.1 mmHg AV Area 0.8 cm MV Gradient Peak 5.8 mmHg MV Mean 2.4 mmHg MV Area cm COMMENTS: Nurse Office: 1 DEMARCUS COOKOE Bleach Boiler Puller: 3 Dr. Meredith TAPE# PACS Pericardial Effusion N DATE OF SERVICE: Adequate 2-D echo, color flow and spectral Doppler, and M-mode. LVH is present. LV internal dimensions are normal. Wall motion is normal. EF is greater than or equal to 55%. Aortic valve is sclerotic with leaflet calcification and decreased excursion. Peak gradient is 59 mmHg. Calculated aortic valve area of 0.8 cm-squared, putting this in the severe range. Left atrium is dilated at 5.0 cm. Mitral valve is thickened with mild MR. Right-sided chamber is grossly normal. Xfel-je-ysargcdu TR by color flow ECHOCARDIOGRAM REPORT [id number] CELENA TOMPKINS. TRANSINT:[id number] Voice Confirmation ID: [id number] DOCUMENT ID: [id number] WANDA CARMONA MD at 0829 CC: [id number] DICTATION DATE: 03/29/18 1138 BLIND HANGER: 03/29/18 1330 DIS IN 03/30/18 [place] [id number] [place] [id number]
--- NOTE | ~2018-03-28 | CN ---
PATIENT NAME:CELENA TOMPKINS MEDICAL RECORD: [id number] : 47 LOCATION:SUE.CLR- ADMIT DATE: 03/28/18 ACCOUNT: [id number] CONSULTING PHYSICIAN: WANDA CARMONA MD REFERRING PHYSICIAN: CAMRON HODGE DO DATE OF CONSULTATION: 03/29/2018 HISTORY OF PRESENT ILLNESS: A 72-year-old female with a history of coronary artery disease, status post intervention. She has a history of paroxysmal atrial fibrillation, aortic stenosis, began having scapular pain. This is quite reminiscent of her previous angina. Last intervention over a year ago. No recent arrhythmia type symptomatology. We are asked to see her concerning her cardiovascular status. PAST MEDICAL HISTORY: Includes: 1. History of hypertension. 2. Hyperlipidemia. 3. Paroxysmal atrial fibrillation. 4. Coronary artery disease. 5. Hypothyroidism, on replacement. 6. Gastroesophageal reflux disease. ALLERGIES: SULFA. MEDICATIONS: Include Synthroid 50 mcg every day, Prilosec 20 every day, aspirin 81 every day, metoprolol 50 every day, amiodarone 200 every day. SOCIAL HISTORY: Nonsmoker, nondrinker. Easily takes care of all her ADLs. REVIEW OF SYSTEMS: The patient reports easy bruising but reports no swollen glands. The patient reports no fever, no night sweats, no significant weight gain, no significant weight loss. No significant exercise tolerance. The patient reports no dry eyes, no irritation, no vision change. Patient reports no difficulty hearing and no ear pain. Patient reports no frequent nose bleeds or nose and sinus problems. Patient reports on arm pain on exertion. No shortness of breath while lying down. No history of heart murmur. Patient reports no cough, no wheezing or coughing up blood. Patient reports no abdominal pain, no vomiting. Normal appetite. No diarrhea and not vomiting blood. No nausea and no constipation. Patient reports no incontinence. No difficulty urinating. No hematuria. No increased frequency. Patient reports no muscle aches. No weakness, no arthralgias, no back pain. No swelling of the extremities. Patient reports no abnormal mole, no jaundice, no rashes. Reports no loss of consciousness. No weakness and no numbness. No seizures, dizziness, or headaches. The patient reports no depression, no sleep disturbance, feeling safe in a relationship and no alcohol abuse. Patient reports on fatigue. Reports no runny nose or sinus pressure. No itching, no hives, and no frequent sneezing. PHYSICAL EXAMINATION: GENERAL: Pleasant female in no acute distress. VITAL SIGNS: Blood pressure 81/35, pulse 58 and regular. HEENT: Normocephalic, atraumatic. NECK: Questionable bilateral carotid bruits versus radiation of systolic ejection murmur. HEART: Regular rate and rhythm. A III/ systolic ejection murmur, heard CONSULT REPORT [id number] CELENA TOMPKINS throughout the entire precordium. LUNGS: Good air excursion. ABDOMEN: Soft, nontender. EXTREMITIES: Pulses 2+. No edema. NEUROLOGIC: Grossly intact. DIAGNOSTIC DATA: ECG without acute change. IMPRESSION: Accelerated angina. Would like to check echocardiographic study to see if aortic stenosis has progressed additionally, although this may be radiation of existing murmur. Would check carotid Dopplers to ensure nothing flow obstructive. PLAN: Angiography in the a.m. TRANSINT:[id number] Voice Confirmation ID: [id number] DOCUMENT ID: [id number] WANDA CARMONA MD at 0829 CC: [id number] DICTATION DATE: 03/29/18 1008 PASS WORKER: 03/29/18 1134 DIS IN 03/30/18 [place] [id number] [place] [address]
--- NOTE | ~2018-03-28 | HEMODYNAMI ---
PATIENT:CELENA TOMPKINS MEDICAL RECORD: [id number] : 47 [facility].2114 [id number] ADMISSION DATE: 03/28/18 Generatedon:03/30/20189:26 Patient name: CELENA TOMPKINS Patient #: [id number] SSN: : 1945 Date of study: 03/30/2018 Page: Of Hemodynamic Procedure Report Patient Data Patient Demographics Procedure consent was obtained First Name: CELENA Gender: Female Last Name: TURNER : 1945 [facility] Initial: A Age: 72 year(s) Patient #: [id number] Race: Additional ID: [id number] Contact details Address: [address] [place] [address] State: [place] City: [place] Zip code: [address] Past Medical History History of disease Date Diagnosis Comments CAD Allergies Allergen Reaction Date Comments Reported Sulfa drugs 12/26/2014 Sulfa drugs 09/11/2016 Sulfa drugs 06/02/2017 Other allergy 03/30/2018 SULFA Admission Admission Data Admission Date: 03/28/2018 Admission Time: 22:46 Room #: D.2114 Lab Results Lab Result Date: 03/30/2018 Lab Result Time: 0:00 Biochemistry Name Units Result Min Max BUN mg/dl 12 --(-*--)-- 7 18 Creatinine mg/dl 1.1 --(--*-)-- 0.6 1.3 CBC Name Units Result Min Max Hemoglobin g/dl 10.8 *-(----)-- 13.5 17.5 Procedure Procedure Types Cath Procedure Diagnostic Procedure LHC LHC w/Coronaries Aortic Root Angiography Procedure Description Procedure Date Procedure Date: 03/30/2018 Procedure Start Time: 8:52 Procedure End Time: 9:22 Procedure Staff Name Function Ranjeet Huitron MD Performing Physician Esvin Calvert RT Monitor Poly Sommer RT Scrub Vane Galindo RN Nurse Mireya Cabrera RN Nurse Procedure Data Cath Procedure Fluoroscopy Diagnostic fluoroscopy Total fluoroscopy Time: 4.9 time: 4.9 min min Diagnostic fluoroscopy Total fluoroscopy dose: 334 dose: 334 mGy mGy Contrast Material Contrast Material Type Amount (ml) Isovue 300 64 Entry Location Entry Primary Successful Side Size Upsize Upsize Entry Closure Succes sful Closure Location (Fr) 1 (Fr) 2 (Fr) Remarks Device Remarks Femoral Right 5 Fr Exoseal artery Diagnostic catheters Device Type Used For End Catheter Placement MULTIPACK JL 4.0 5Fr Left Coronary catheter Angiography MULTIPACK 3DRC 5Fr Right Coronary catheter Angiography MULTIPACK Pigtail 5 Fr LV Angiography catheter DIAGNOSTIC AL1 5Fr LV Angiography catheter ([id number]) Procedure Complications No complications Procedure Medications Medication Administration Route Dosage 0.9% NaCl I.V. 100 ml/hr Oxygen etCO2 Nasal cannula 2 l/min Lidocaine 2% added to field 20 Heparin Flush Bag added to field 2 bags (1000units/500ml NS) Fentanyl I.V. 50 mcg Versed I.V. 2 mg Versed I.V. 1 mg Fentanyl I.V. 50 mcg Dobutamine I.V. drip 10 mcg/kg/min (500mg/250ml D5W) Dobutamine I.V. drip 15 mcg/kg/min (500mg/250ml D5W) Dobutamine I.V. drip 20 mcg/kg/min (500mg/250ml D5W) Dobutamine 20 mcg/kg/min (500mg/250ml D5W) Hemodynamics Rest HGB: 10.8 (g/dl) Heart Rate: 60 (bpm) Pressure Samples Time Site Value (mmHg) Purpose Heart Use Rate(bpm) 9:05 LV 137/4,14 EDP 59 9:05 LV 138/5,11 Snapshot 65 9:09 LV 124/7,9 EDP 64 9:16 AO 125/55(85) Pullback 61 9:16 LV 131/-3,10 Pullback 61 Gradients Valve Time Site 1 Site 2 Mean SEP/DFP Peak To Heart Use (mmHg) (sec/min) Peak Rate (mmHg) (bpm) Aortic 9:16 LV AO 19 15 6 61 131/-3,10 125/55(85) Calculations Valve P-P Mean Valve Index Valve Source Name Gradient Area Flow (cm2) Aortic 6 19 6 19 Snapshots Pre Cath Intra NCS Post Cath Vital Signs Time Heart Resp SPO2 etCO2 NIBP (mmHg) Rhythm Pain Sedation Rate (ipm) (%) (mmHg) Status Level (bpm) 8:37:39 66 14 100 29 143/74(96) NSR 0 (11) 10(A) , No pain 8:41:59 58 19 100 27 151/65(95) NSR 0 (11) 10(A) , No pain 8:46:21 57 14 100 27 134/69(99) NSR 0 (11) 10(A) , No pain 8:50:37 59 12 98 32 134/67(99) NSR 0 (11) 10(A) , No pain 8:54:53 60 11 97 32 129/67(92) NSR 0 (11) 9(A) , No pain 8:59:07 62 18 97 33 136/67(97) NSR 0 (11) 9(A) , No pain 9:03:23 64 12 97 33 133/70(101) NSR 0 (11) 9(A) , No pain 9:07:35 66 15 98 31.5 103/62(84) NSR 0 (11) 9(A) , No pain 9:11:41 57 11 98 28.5 114/63(86) NSR 0 (11) 10(A) , No pain 9:15:50 60 12 98 30.8 110/62(83) NSR 0 (11) 10(A) , No pain 9:20:50 61 35 99 30 126/67(91) NSR 0 (11) 9(A) , No pain Medications Time Medication Route Dose Verified Delivered Reason Notes Effectiveness by by 8:48:32 0.9% NaCl I.V. 100 ml/hr Ranjeet Cifuentes used fo r TomyJonah Galindo procedure MD GONZALEZ 8:48:42 Oxygen etCO2 Nasal 2 l/min Ranjeet Cifuentes used fo r cannula St Jonah Galindo procedure MD GONZALEZ 8:48:50 Lidocaine 2% added to field 20ml vial Ranjeet Cifuentes used fo r St Jonah Galindo procedure MD GONZALEZ 8:48:58 Heparin Flush added to field 2 bags Ranjeet Cifuentes used fo r Bag St Jonah Galindo procedure (1000units/500ml MD GONZALEZ NS) 8:49:04 Fentanyl I.V. 50 mcg Ranjeet Cifuentes for Tomy Mateo sedation MD GONZALEZ 8:49:09 Versed I.V. 2 mg Ranjeet Vane for Lyman Mateo sedation RN 8:53:27 Versed I.V. 1 mg Ranjeet Vane for Lyman Mateo sedation RN 8:53:32 Fentanyl I.V. 50 mcg Ranjeet Vane for TomyJonah Galindo sedation RN 9:10:55 Dobutamine I.V. drip 10 Ranjeet Vane Per (500mg/250ml mcg/kg/min [facility] D5W) MD GONZALEZ 9:12:36 Dobutamine I.V. drip 15 Ranjeet Vane Per (500mg/250ml mcg/kg/min [facility] physician D5W) MD GONZALEZ 9:14:42 Dobutamine I.V. drip 20 Ranjeet Vane Per (500mg/250ml mcg/kg/min [facility] physician D5W) MD GONZALEZ 9:18:56 Dobutamine I.V. 20 Ranjeet Vane Per (500mg/250ml drip-discontinued mcg/kg/min [facility] physician D5W) MD GONZALEZclinical implementation specialist Log Time Note 8:14:58 Signed procedure consent form obtained from patient. 8:18:17 H&P Date Dictated: 03/28/2018 Within 30 days and on chart.. 8:18:34 Patient allergic to Other allergySULFA 8:18:59 Lab Result : BUN 12 mg/dl 8:18:59 Lab Result : Hemoglobin 10.8 g/dl 8:18:59 Lab Result : Creatinine 1.1 mg/dl 8:19:32 Mireya Cabrera RN sent for patient. Start room use. 8:19:34 Time tracking: Regular hours (M-F 7:00 - 5:00) 8:19:40 Plan of Care:Hemodynamics will remain stable., Cardiac rhythm will remain stable., Comfort level will be maintained., Respiratory function will remain adequate., Patient/ family verbilizes understanding of procedure., Procedure tolerated without complication., Recovers from procedure without complications.. 8:31:57 Patient received from Pre/Post Procedure Room to CCL 1 Alert and oriented. Tansferred to table in Supine position. 8:31:58 Warm blankets applied, and shea hugger turned on for patient comfort. 8:31:59 Correct patient and procedure confirmed by team. 8:32:00 ECG and BP/O2 sat monitors applied to patient. 8:36:33 Baseline sample Acquired. 8:36:33 Vital chart was started 8:36:38 Rhythm: sinus rhythm 8:36:40 Full Disclosure recording started 8:36:41 Pre-procedure instructions explained to patient. 8:36:41 Pre-op teaching completed and patient verbalized understanding. 8:36:51 Family unavailable. 8:36:56 Patient NPO since Midnight. 8:37:00 Is the patient allergic to Iodine/contrast media? No. 8:37:05 Is patient on blood thinner?No 8:37:07 Patient diabetic? No. 8:37:15 ----Pre-sedation anethsthesia assessment.---- 8:37:18 Previous problem with sedation/anesthesia? No ? 8:37:19 Snore? Yes 8:37:21 Sleep apnea? No 8:37:23 Deviated septum? No 8:37:25 Opens mouth fully? Yes 8:37:26 Sticks out tongue? Yes 8:37:30 Airway obstruction? No ? 8:37:34 Dentures? Yes IN TIGHT 8:37:40 Pre procedure: right dorsailis pedis pulse 1+ Palpable, but thready & weak; easily obliterated 8:37:45 Patient pain scale 0/10 ?. 8:37:49 IV patent on arrival in right antecubital with 0.9% NaCl at 10ml/hr. 8:37:54 Lab results completed and on chart. 8:37:57 Right groin area was prepped with chlora-prep and draped in sterile fashion 8:37:58 Alarms reviewed by R. N. 8:37:58 Sharps counted by scrub and verified by R.N. 8:43:22 Physician arrived 8:43:22 --------ALL STOP TIME OUT------ 8:43:23 Final Timeout: patient, procedure, and site verified with staff and physician. All members of the team are in agreement. 8:43:25 Right groin site verified by team. 8:43:33 Physical assessment completed. ASA score P 2 - A patient with mild systemic disease as per Ranjeet Huitron MD. 8:43:37 Sedation plan: IV Moderate Sedation Medication:Versed, Fentanyl 8:48:32 0.9% NaCl 100 ml/hr I.V. was administered by Vane Galindo RN; used for procedure; 8:48:42 Oxygen 2 l/min etCO2 Nasal cannula was administered by Vane Galindo RN; used for procedure; 8:48:50 Lidocaine 2% 20ml vial added to field was administered by Vane Galindo RN; used for procedure; 8:48:50 Zero performed for pressure channel P1 8:48:58 Heparin Flush Bag (1000units/500ml NS) 2 bags added to field was administered by Vane Galindo RN; used for procedure; 8:49:01 Baseline sample Acquired. 8:49:04 Fentanyl 50 mcg I.V. was administered by Vane Galindo RN; for sedation; 8:49:09 Versed 2 mg I.V. was administered by Vane Galindo RN; for sedation; 8:51:43 Use device set Femoral Dx 8:51:44 ACIST Syringe (87118) opened to sterile field. 8:51:45 Bag Decanter (2002S) opened to sterile field. 8:51:45 Medline Cath Pack ([id number]) opened to sterile field. 8:51:45 DIAGNOSTIC WIRE .035 260cm J wire (214500) opened to sterile field. 8:51:47 ACIST Hand Control (85137) opened to sterile field. 8:51:48 ACIST Manifold (12566) opened to sterile field. 8:51:48 DIAGNOSTIC Multipack 5Fr catheter set ([id number]) opened to sterile field. 8:51:50 Tegaderm 4 x 4 (1626W) opened to sterile field. 8:51:54 SHEATH Prelude 5Fr 0.035 (SYQ-9O-52-035) opened to sterile field. 8:51:58 Procedure started. 8:52:10 Local anesthetic to right femoral artery with Lidocaine 2% by Ranjeet Huitron MD.INITIAL ACCESS ONLY 8:52:18 A 5 Fr sheath was inserted into the Right Femoral artery 8:53:27 Versed 1 mg I.V. was administered by Vane Galindo RN; for sedation; 8:53:32 Fentanyl 50 mcg I.V. was administered by Vane Galindo RN; for sedation; 8:57:37 A MULTIPACK JL 4.0 5Fr catheter was advanced over the wire and used for Left Coronary Angiography. 8:58:36 LCA angiography performed. 8:59:19 Catheter removed. 8:59:27 A MULTIPACK 3DRC 5Fr catheter was advanced over the wire and used for Right Coronary Angiography. 8:59:46 RCA angiography performed. 9:00:03 Catheter removed. 9:00:09 A MULTIPACK Pigtail 5 Fr catheter was advanced over the wire and used for LV Angiography. 9:01:35 Aortic Root visualized 9:01:55 Procedure type changed to Cath procedure, Diagnostic procedure, LHC, LHC w/Coronaries, Aortic Root Angiography 9:02:25 Catheter removed. 9:03:24 ROADRUNNER .035 260 glide wire ([id number]) opened to sterile field. 9:03:30 A DIAGNOSTIC AL1 5Fr catheter ([id number]) was advanced over the wire and used for LV Angiography. 9:05:07 LV gram done using JC 9:05:35 LV hemodynamics recorded. 9:06:19 EF : 55 % 9:07:01 Catheter exchanged over wire. 9:08:02 5FR PIGTAIL INSERTED OVER THE WIRE\ 9:10:55 Dobutamine (500mg/250ml D5W) 10 mcg/kg/min I.V. drip was administered by Vane Galindo RN; Per physician; 9:12:36 Dobutamine (500mg/250ml D5W) 15 mcg/kg/min I.V. drip was administered by Vane Galindo RN; Per physician; 9:14:42 Dobutamine (500mg/250ml D5W) 20 mcg/kg/min I.V. drip was administered by Vnae Galindo RN; Per physician; 9:17:06 Catheter removed. 9:17:11 Procedure ended.(Physican Out) 9:17:22 Sheath removed intact; hemostasis achieved with Exoseal to the Right Femoral artery. 9:17:36 Fluoroscopy time 04.90 minutes. 9:17:43 Fluoroscopy dose: 334 mGy 9:17:43 Flurop Dose total: 334 9:17:48 Contrast amount:Isovue 300 64ml. 9:17:50 Sharps counted by scrub and verified by R.N. 9:17:51 Insertion/operative site no bleeding no hematoma. 9:17:54 Post-op/insertion site Right Femoral artery dressed using a 4 x 4 and Tegaderm. 9:18:04 Post right femoral artery:stable 9:18:06 Post Procedure Pulses reassessed and unchanged 9:18:27 Post procedure: right dorsailis pedis pulse 1+ Palpable, but thready & weak; easily obliterated. 9:18:56 Dobutamine (500mg/250ml D5W) 20 mcg/kg/min I.V. drip-discontinued was administered by Vane Galindo RN; Per physician; 9:19:56 Post-procedure physical assessment completed. ASA score P 2 - A patient with mild systemic disease as per Ranjeet Huitron MD. 9:19:59 Post procedure rhythm: sinus rhythm 9:20:01 Post procedure instruction explained to patient.Patient verbalizes understanding. 9:20:13 EXOSEAL 5Fr (EX500) opened to sterile field. 9:21:52 Procedure and supply charges have been captured, reviewed, submitted and are correct. 9:21:56 Procedure Complication : No complications 9:22:06 Vital chart was stopped 9:22:06 See physician's report for complete and final results. 9:22:15 Report given to PCU. 9:22:19 Patient transfered to PCU with Bed. 9:22:21 Procedure ended. 9:22:21 Full Disclosure recording stopped 9:22:25 End room use (Document Last) Device Usage Item Name Manufacture Quantity Catalog Number Hospital Part Current M inimal Lot# / Charge Number Stock Stock Serial# Code ACIST Syringe Acist 1 57769 648281 697402 [id number] 2 0 (95889) [employer] Bag Decanter Microtek 1 539136 74509 206990 5 () Medical Inc. Medline Cath Cardinal 1 [id number] 016064 96995 587214 5 Pack Health ([id number]) DIAGNOSTIC WIRE St Ben 1 329974 276642 342616 476882 3 0 .035 260cm J wire (433978) ACIST Hand Acist 1 02888 863135 721487 603213 5 Control (85610) [employer] Inc ACIST Manifold Acist 1 82110 448336 414402 169540 5 (08231) [employer] Inc DIAGNOSTIC Cardinal 1 OQ1575 816797 01136 088577 3 0 Multipack 5Fr Health catheter set (OG6832) Tegaderm 4 x 4 3M 1 1626W 654249 190968 073223 5 (1626W) SHEATH Prelude Merit 1 TWM-1D-67-035 992848 580485 760341 5 5Fr 0.035 Medical (WVY-2Q-84-035) MULTIPACK JL Cardinal 1 589556 5 4.0 5Fr Health catheter MULTIPACK 3DRC Cardinal 1 274343 5 5Fr catheter Health MULTIPACK Cardinal 1 294541 5 Pigtail 5 Fr Health catheter ROADRUNNER .035 Cook Medical 1 I02638 224049 276557 239233 5 260 glide wire (B62713) DIAGNOSTIC AL1 Cardinal 1 [id number] 740885 754060 474739 1 5 5Fr catheter Health (548287R) EXOSEAL 5Fr Cardinal 1 EX500 126376 913615 814920 1 0 (EX500) Health Signature Audit Rydal Stage Time Signature Unsigned Intra-Procedure 03/30/2018 Esvin Calvert RT(R) 9:26:20 AM Signatures Monitor : Esvin Calvert RT Signature : Date : Time : [address] [address]
--- NOTE | ~2018-03-28 | OP ---
PATIENT NAME: CELENA TOMPKINS MEDICAL RECORD: [id number] :47 LOCATION:[facility]- ADMISSION DATE:03/28/18 SURGEON: WANDA CARMONA MD DATE OF OPERATION: 03/30/2018 PROCEDURES: Left heart catheterization, selective coronary angiography, right femoral artery approach. CATHETERS: A 5-Singaporean sheath, 5/4 left and right Brianne, 5/4 pig. Angiography injection as well to assist in crossing her valve as well as Dobutrex infusion during LV gram. FINDINGS: Left ventriculography in 30-degree JC view, normal wall motion. Normal systolic function. CORONARY ANATOMY: LEFT MAIN: Left main is free of disease. LAD: Area of previous stenting is widely patent at its course. No evidence of restenosis. No progression of ruby disease. CIRCUMFLEX: Again, no evidence of restenosis. No evidence of progression of ruby disease. RIGHT CORONARY ARTERY: Widely patent throughout its course. With infusion of Dobutrex, aortic valve gradient was up to 40 mmHg. Echocardiographic study showed a somewhat worse gradient at 60 and a calculated aortic valve area of 0.8. Expect given her symptomatology, would lean more towards the echocardiographic data at this point. If symptomatology continues, we would consider referral to CV surgeon for a possible valve replacement given symptomology. Aortic root injection shows 1 cusp opening and the other cusps frozen with no evidence of aortic dissection or aneurysm. TRANSINT:[id number] Voice Confirmation ID: [id number] DOCUMENT ID: [id number] WANDA CARMONA MD at 0829 CC: [id number] DICTATION DATE: 03/30/18925 NEURODIAGNOSTIC TECHNOLOGIST: 03/30/18 1149 DIS IN 03/30/18 [facility] [address] [place] [address]
[2018-03-28 22:41] LABS: BASOPHILS 0.4 % (0-2); EOSINOPHILS 2.1 % (0-7); HEMATOCRIT 32.5 % (36.0-48.0); HEMOGLOBIN 10.6 g/dL (12-16); IMMATURE GRANULOCYTES 0.1 % (0-5); LYMPHOCYTES 28.6 % (15-50); MCH 30.2 pg (26.0-34.0); MCHC 32.6 g/dL (31.0-37.0); MCV 92.6 fL (80.0-100.0); MEAN PLATELET VOLUME 9.7 fL (7.4-10.4); MONOCYTES 8.2 % (2-11); NEUTROPHILS 60.6 % (40-80); PLATELET COUNT 199 10x3/uL (130-400); RBC 3.51 10x6/uL (4.00-5.40); RDW 13.7 % (11.5-14.5); WBC 7.6 10x3/uL (4.8-10.8)
[2018-03-28 22:47] LABS: INR 0.97 (0.85-1.17); PROTIME 12.5 SECONDS (11.6-15.0)
[2018-03-28 22:51] LABS: ALBUMIN 2.8 g/dL (3.4-5.0); ALKALINE PHOSPHATASE 75 U/L (46-116); ALT (SGPT) 15 U/L (10-68); BILIRUBIN - TOTAL 0.22 mg/dL (0.2-1.3); CALC OSMOLALITY 272 mosm/kg (275-300); CALCIUM 8.2 mg/dL (8.5-10.1); CARBON DIOXIDE 22.3 mmol/L (21.0-32.0); CHLORIDE - SERUM 104 mmol/L (98-107); CREATININE - SERUM 1.3 mg/dL (0.6-1.3); GLUCOSE 79 mg/dL (74-106); POTASSIUM - SERUM 4.4 mmol/L (3.5-5.1); PROTEIN - SERUM 6.2 g/dL (6.4-8.2); SODIUM 136 mmol/L (136-145); UREA NITROGEN 17 mg/dL (7-18); eGFR NON AFRICAN AMERICAN 43 mL/min (90-120)
[2018-03-28 23:04] LABS: CKMB 1.4 U/L (0.0-3.6); CREATINE KINASE 84 UL (21-215); PRO BNP 759 pg/mL (0-125)
[2018-03-28 23:06] LABS: TROPONIN-I < 0.017 ng/mL (0.000-0.060)
[2018-03-28 23:15] VITALS: BP 133/68
[2018-03-28] MEDS ORDERED: BAYER CHEWABLE81 MG PO (23:27)
[2018-03-28 23:56] VITALS: BP 133/68; Ht 167.6 cm; Wt 65.9 kg
[2018-03-29] VITALS: BP 113/61
[2018-03-29 04:00] VITALS: BP 98/61
[2018-03-29 08:04] VITALS: BP 81/35
[2018-03-29 11:01] VITALS: BP 91/36
[2018-03-29 16:30] VITALS: BP 91/36
[2018-03-29 20:00] VITALS: BP 95/41
[2018-03-30 00:11] VITALS: BP 97/55
[2018-03-30 04:00] VITALS: BP 113/45
[2018-03-30 04:50] LABS: BASOPHILS 0.3 % (0-2); HEMATOCRIT 33.4 % (36.0-48.0); HEMOGLOBIN 10.8 g/dL (12-16); IMMATURE GRANULOCYTES 0.2 % (0-5); LYMPHOCYTES 22.7 % (15-50); MCH 30.2 pg (26.0-34.0); MCHC 32.3 g/dL (31.0-37.0); MCV 93.3 fL (80.0-100.0); MEAN PLATELET VOLUME 10.3 fL (7.4-10.4); MONOCYTES 11.4 % (2-11); NEUTROPHILS 63.4 % (40-80); PLATELET COUNT 181 10x3/uL (130-400); RBC 3.58 10x6/uL (4.00-5.40); WBC 6.1 10x3/uL (4.8-10.8)
[2018-03-30 05:04] LABS: CALCIUM 7.6 mg/dL (8.5-10.1); CARBON DIOXIDE 24.4 mmol/L (21.0-32.0); CREATININE - SERUM 1.1 mg/dL (0.6-1.3); POTASSIUM - SERUM 4.4 mmol/L (3.5-5.1)
[2018-03-30 08:23] VITALS: BP 106/67
== END 2018-03-30 12:05 | disposition home or self-care (01) ==
LOC: D.ER 22:06 → D.M2 22:46 → OBSVTIME 23:00 → D.CLR 03-30 10:24
PROVIDERS: Family Medicine
DX: I35.0 Nonrheumatic aortic (valve) stenosis (principal); I10 Essential (primary) hypertension; I48.91 Unspecified atrial fibrillation; Z79.01 Long term (current) use of anticoagulants; E78.5 Hyperlipidemia, unspecified; E03.9 Hypothyroidism, unspecified; K21.9 Gastro-esophageal reflux disease without esophagitis; I95.9 Hypotension, unspecified

== ENCOUNTER → 2018-09-22 11:05 | Outpatient (CLI) | payer MEDICARE, BC ==
[~2018-09-22] VITALS: Ht 167.6 cm; Wt 65.5 kg
[2018-09-22 12:11] VITALS: BP 107/71; Ht 167.6 cm; Wt 65.5 kg
== END | disposition home or self-care (01) ==
LOC: D.OPS 09-10 09:00
PROVIDERS: ATTEND Family Medicine
DX: M81.0 Age-related osteoporosis without current pathological fracture (principal)

== ENCOUNTER 2019-05-07 06:36 | Outpatient (CLI) | payer MEDICARE, BC ==
[~2019-05-07] VITALS: Ht 167.6 cm; Wt 64.5 kg
[~2019-05-07 06:36] MED LIST changes: +OMEPRAZOLE20 M1 PO; -PRILOSEC20 MG PO
[2019-05-07 07:32] LABS: CALC OSMOLALITY 277 mosm/kg (275-300); CALCIUM 9.3 mg/dL (8.5-10.1); CHLORIDE - SERUM 107 mmol/L (98-107); CREATININE - SERUM 1.2 mg/dL (0.6-1.3); GLUCOSE 100 mg/dL (74-106); POTASSIUM - SERUM 4.4 mmol/L (3.5-5.1); SODIUM 139 mmol/L (136-145); UREA NITROGEN 12 mg/dL (7-18); eGFR NON AFRICAN AMERICAN 47 mL/min (90-120)
[2019-05-07 07:33] VITALS: BP 109/61
--- NOTE | 2019-05-07 07:40 | NUR ---
PAGED DR DENNY
[2019-05-07 07:42] LABS: BASOPHILS 0.3 % (0-2); EOSINOPHILS 1.9 % (0-7); HEMATOCRIT 32.6 % (36.0-48.0); HEMOGLOBIN 10.6 g/dL (12-16); IMMATURE GRANULOCYTES 0.2 % (0-5); LYMPHOCYTES 17.8 % (15-50); MCH 30.1 pg (26.0-34.0); MCHC 32.5 g/dL (31.0-37.0); MCV 92.6 fL (80.0-100.0); MEAN PLATELET VOLUME 9.8 fL (7.4-10.4); MONOCYTES 9.4 % (2-11); NEUTROPHILS 70.4 % (40-80); RBC 3.52 10x6/uL (4.00-5.40); WBC 5.9 10x3/uL (4.8-10.8)
[2019-05-07 07:45] LABS: INR 0.97 (0.85-1.17); PROTIME 12.4 SECONDS (11.6-15.0)
--- NOTE | 2019-05-07 07:45 | NUR ---
DR DENNY CALLED BACK. INFORMED THAT CARDIZEM HELD PT CONVERTED TO SB @ 59 BPM JW=365/61. DR DENNY ORDERED TO HOLD CARDIZEM GTT AND WILL CONTINUE TO ADM PT OBS
[2019-05-07 07:46] LABS: APTT 27.9 SECONDS (22.8-39.4)
[2019-05-07 07:47] LABS: ALBUMIN 2.8 g/dL (3.4-5.0); ALKALINE PHOSPHATASE 84 U/L (46-116); ALT (SGPT) 12 U/L (10-68); BILIRUBIN - TOTAL 0.21 mg/dL (0.2-1.3); CKMB 1.4 U/L (0.0-3.6); CREATINE KINASE 89 UL (21-215); PROTEIN - SERUM 6.2 g/dL (6.4-8.2); TROPONIN-I < 0.017 ng/mL (0.000-0.060)
[2019-05-07 07:48] VITALS: BP 109/61
[2019-05-07 08:00] VITALS: BP 100/57
[2019-05-07 08:01] LABS: PLATELET COUNT 231 10x3/uL (130-400)
--- NOTE | 2019-05-07 08:02 | NUR ---
REPORT CALLED TO RAGHU @ 4134.
--- NOTE | 2019-05-07 08:22 | NUR ---
PT ARRIVED TO FLOOR VIA WC. ACCOMPANIED BY ER STAFF AND SPOUSE. PT TRANSFERED SELF FROM WC TO BED. LEFT FA 20G IV INFUSING NS AT 125ML/HR. PT IS ALERT AND ORIENTED AND HAS NO FURTHER NEEDS AT THIS TIME. BED LOW. CL IN REACH.
[2019-05-07 09:14] VITALS: BP 101/62; BMI 22.9
[2019-05-07 09:38] LABS: CKMB 1.6 U/L (0.0-3.6); CREATINE KINASE 128 UL (21-215); TROPONIN-I 0.042 ng/mL (0.000-0.060)
[2019-05-07 09:43] VITALS: Ht 167.6 cm; Wt 64.5 kg
--- NOTE | 2019-05-07 10:00 | NUR ---
REFUSED SCD'S. PT BEING DC'D
--- NOTE | 2019-05-07 10:41 | NUR ---
PT'S BP IS 88/60. PLACED PT IN [facility] AND THEN CHECKED MANUALLY AND IT IS 82/46. JAY ENVIRONMENTAL PROFESSIONAL AND STATED THIS TO THEM AND THEY ASKED DR. DENNY AND HE STATES TO SEND HER HOME.
--- NOTE | 2019-05-07 10:51 | NUR ---
LEFT FA 20G IV DC'D WITH CATH INTACT. TELEMETRY DC'D. DISCHARGE INSTUCTIONS EXPLAINED AND GIVEN TO PT. PT HAS NO FURTHER QUESTIONS AT THIS TIME. DISCAHRGE COPY SIGNED. VOLUNTEER CALLED FOR WC.
[2019-05-07 10:55] VITALS: BP 95/49
--- NOTE | 2019-05-07 11:03 | NUR ---
PT LEFT VIA WC BY VOLUNTEER AND SPOUSE AND OTHER FAMILY MEMBERS IN PERSONAL CAR.
--- NOTE | 2019-05-07 11:29 | MORECARE ---
CASE MANAGEMENT DISCHARGE SUMMARY PATIENT: CELENA TOMPKINS UNIT: [id number] ADM DATE: 05/07/19 AGE: 73 : [birth year] SEX: F ROOM/BED: D.7050 AUTHOR: JOHNY FARMER PHYSICIAN: REFERRING PHYSICIAN: STANFORD DENNY MD DATE OF SERVICE: 05/07/19 Discharge Plan Patient Name: CELENA TOMPKINS [facility] [facility] 1945 Planned Disposition: Home Anticipated Discharge Date: 05/07/19 Discharge Date: 05/07/2019 Expected LOS: 1 Initial Reviewer: [email or web address] Initial Review Date: 05/07/2019 Generated: 05/07/19 12:28 pm Patient Name: CELENA TOMPKINS Page 15394 at 1129 All edits/amendments must be made on the electronic document DICTATION DATE: 05/07/19 1128 DATA PROCESSING EQUIPMENT REPAIRER: GORDO 05/07/19 1128 RPT#: [id number] DC DATE:05/07/19 STATUS: DIS IN [facility] [address] [place] [address] END OF REPORT
--- NOTE | 2019-05-10 09:28 | CN ---
PATIENT NAME:CELENA ANTOINE MEDICAL RECORD: [id number] : 47 LOCATION:[facility] D.2123 ADMIT DATE: 05/07/19 ACCOUNT: [id number] CONSULTING PHYSICIAN: STANFORD DENNY MD REFERRING PHYSICIAN: STANFORD DENNY MD DATE OF CONSULTATION: 05/07/2019 DIAGNOSES: 1. Palpitations. 2. Paroxysmal atrial fibrillation. 3. Shortness of breath, dyspnea on exertion. 4. Coronary artery disease. 5. Previous percutaneous transluminal coronary angioplasty stent. 6. Hypertension. 7. Gastroesophageal reflux disease. 8. Valvular heart disease, aortic stenosis. HISTORY OF PRESENT ILLNESS: Mrs. Antoine was awoke at 4:00 a.m. with a rapid heartbeat, palpitations and shortness of breath. She took her amiodarone. She normally takes as well as her metoprolol. This persisted. She presented in the Emergency Room was in atrial fibrillation with rapid ventricular response. She was having no EKG changes. Troponin was normal. EKG was with no acute ST-T abnormalities. She spontaneously converted to sinus rhythm. She feels totally back to normal at this time. EKG is sinus eduarda with no ST-T abnormalities. PHYSICAL EXAMINATION: CONSTITUTIONAL/GENERAL APPEARANCE: Well nourished, well developed, appears stated age. EYES: Lids and conjunctivae noninjected. No discharge. No pallor. ENT: Lips within normal limit. No cyanosis. No pallor. NECK: Carotid arteries, bilateral normal upstroke. No bruits. No thrills. No jugular venous pressure or distention. CERVICAL LYMPH NODES: Nontender. Nonenlarged. THYROID: Not enlarged. No nodules. CARDIOVASCULAR: Precordial exam, nondisplaced. No heaves or pericardial thrills. Rate and rhythm, regular. Heart sounds, normal S1, normal S2. No S3, no gallop, no rub. Systolic murmur, not heard. Diastolic murmur, not heard. RESPIRATORY: Respiratory effort, unlabored. Normal curvature. No thoracic deformity. No chest wall tenderness. Percussion, resonant. Auscultation, clear. No wheezes, no rales, no rhonchi. ABDOMEN: Soft, nondistended, nontender. No abdominal pain, no vomiting and normal appetite. MUSCULOSKELETAL: No joint tenderness, normal gait, normal tone. SKIN: Warm and dry. OVERALL IMPRESSION: Paroxysmal atrial fibrillation. At this time, she is stable from a cardiac standpoint, can be discharged home with no change in her medications. TRANSINT:[id number] Voice Confirmation ID: [id number] DOCUMENT ID: [id number] CONSULT REPORT [id number] CELENA ANTOINE, STANFORD CADET at 0928 CC: [id number] DICTATION DATE: 05/07/19 113 ROUSTABOUT CREW LEADER: 05/07/19 1150 DIS IN 05/07/19 [facility] [address] [place] [address]
--- NOTE | 2019-05-10 09:28 | DS ---
PATIENT:CELENA TOMPKINS :47 MEDICAL RECORD: [id number] DISCHARGE SUMMARY ADMISSION DATE: 05/07/19 DISCHARGE DATE: 05/07/19 DIAGNOSES: 1. Paroxysmal atrial fibrillation. 2. Palpitations. 3. Shortness of breath. 4. Coronary artery disease. 5. Previous cardiac stent. 6. Hypertension. 7. Gastroesophageal reflux disease. 8. Valvular heart disease, aortic stenosis. HISTORY AND HOSPITAL COURSE: Ms. Tompkins presented with palpitations, found to be in atrial fibrillation with rapid ventricular response, but she had already taken her amiodarone and metoprolol. By the time she got here, she spent approximately 1 hour in the Emergency Room before Cardizem drip could be started. She spontaneously converted to sinus rhythm and has remained in sinus rhythm. Discharged home with no change in her medications. TRANSINT:[id number] Voice Confirmation ID: [id number] DOCUMENT ID: [id number] STANFORD DENNY MD at 0928 CC: [id number] DICTATION DATE: 05/07/19 1138 CLINICAL REGISTERED NURSE: 05/07/19 2216 DIS IN 05/07/19 [place] [id number] [place] [id number]
== END 2019-05-07 11:03 | disposition home or self-care (01) ==
LOC: OBSVTIME → D.OPS 06:36 → D.ER 06:36 → D.M2 07:01 → D.ER 08:25 → OBSVTIME 11:00 → D.OPS 11:03 → D.M2 11:03 → EDSTATUS 12:32
PROVIDERS: Family Medicine; ATTEND Internal Medicine Interventional Cardiology
DX: I48.0 Paroxysmal atrial fibrillation (principal); R00.2 Palpitations; R06.02 Shortness of breath; I25.10 Atherosclerotic heart disease of native coronary artery without angina pectoris; Z95.5 Presence of coronary angioplasty implant and graft; I10 Essential (primary) hypertension; K21.9 Gastro-esophageal reflux disease without esophagitis; I35.0 Nonrheumatic aortic (valve) stenosis

== ENCOUNTER → 2019-05-24 12:31 | Outpatient (CLI) | payer MEDICARE, BC ==
[2019-05-07 09:43] VITALS: BMI 22.9
--- NOTE | 2019-05-25 11:25 | EC ---
PATIENT:CELENA TOMPKINS DATE OF SERVICE: 05/24/19 SEX: F MEDICAL RECORD: [id number] DATE OF : [birth year] LOCATION:[facility] AGE OF PATIENT: 73 ADMISSION DATE: 05/24/19 REFERRING PHYSICIAN: INTERPRETING PHYSICIAN: STANFORD WHYTE MD ECHOCARDIOGRAM REPORT ECHO CHARGES 4 ECHO COMPLETE Date: 05/24/19 CLINICAL DIAGNOSIS: ATRIAL FIB HX OF CAD ECHOCARDIOGRAPHIC MEASUREMENTS (adult normal given) AC root (d.<3.7cm) 3.4 cm LV Septum d (<1.2 cm> 1.3 cm Valve Excursion 1.1 cm LV Septum (systole) 1.5 cm Left Atria (s.<4.0cm> 4.8 cm LVPW d(<1.2cm) 1.3 cm RV (d.<2.3cm) 4.1 cm LVPW (sytole) 1.5 cm LV diastole(<5.6CM) 4.7 cm MV E-F(>70mm/sec) cm LV systole 3.2 cm LVOT Diameter 1.3 cm MV exc.(>10mm) 1.9 cm Est.ejection fraction (50-75%) % DOPPLER: LVIT cm/sec A 98.0 cm/sec E 110 cm/sec LA cm/sec RVSP 43 mmHg LVOT 120 cm/sec AOP1/2T m/s Asc. Ao 368 cm/sec RVOT 72 cm/sec RA cm/sec PA 270 cm/sec AV Gradient Peak 54.16mmHg AV Mean 33.50mmHg AV Area 0.4 cm MV Gradient Peak 6.95 mmHg MV Mean 2.37 mmHg MV Area cm COMMENTS: PRINCE TRACED AT 1.0CM2 Supervisor Cellars: Melita REID Knitter Mechanic: 1 Dr. Whyte TAPE# PACS Pericardial Effusion N DATE OF SERVICE: 05/24/2019 FINDINGS: 1. Left ventricular chamber size is within normal limits. Left ventricular systolic function is normal. Overall ejection fraction estimated at 55% to 60%. 2. Left atrium is enlarged at 4.8 cm. Right atrium and right ventricular chamber sizes are as well mildly dilated. 3. Valvular structures: Aortic valve demonstrates moderate calcific aortic stenosis, valve area calculates to 1.0 cm-squared. Gradient of 54-mm across the valve. The remaining valvular structures have normal structure and motion. ECHOCARDIOGRAM REPORT [id number] CELENA TOMPKINS 4. Doppler interrogation elsewise reveals mild mitral regurgitation, mild tricuspid regurgitation, no other valvular insufficiency or stenosis. 5. No evidence of pericardial effusion or left ventricular thrombus. TRANSINT:[id number] Voice Confirmation ID: [id number] DOCUMENT ID: [id number] STANFORD WHYTE MD at 1125 CC: [id number] DICTATION DATE: 05/24/191729 CONTRACTING SUPPORT SPECIALIST: 05/24/19 1824 DEP CLI 05/24/[address] [facility] [address] [place] [address]
== END | disposition home or self-care (01) ==
LOC: D.HCCECHO 12:31 → D.HCCARDIO 13:00 → D.HCCECHO 13:00
PROVIDERS: ATTEND Internal Medicine Interventional Cardiology
DX: I48.0 Paroxysmal atrial fibrillation (principal)

== ENCOUNTER → 2019-06-28 09:07 | Outpatient (CLI) | payer MEDICARE, BC ==
[2019-05-07 09:43] VITALS: BMI 22.9
== END | disposition home or self-care (01) ==
LOC: D.HCCARDIO 09:07
PROVIDERS: ATTEND Internal Medicine Interventional Cardiology
DX: I25.10 Atherosclerotic heart disease of native coronary artery without angina pectoris (principal)

== ENCOUNTER 2019-09-05 16:25 | Inpatient (IN) | payer MEDICARE, BC ==
[~2019-09-05] VITALS: Ht 167.6 cm; Wt 61.2 kg
[2019-09-05 17:07] LABS: BASOPHILS 0.1 % (0-2); EOSINOPHILS 0.5 % (0-7); HEMATOCRIT 28.8 % (36.0-48.0); HEMOGLOBIN 9.4 g/dL (12-16); IMMATURE GRANULOCYTES 0.2 % (0-5); LYMPHOCYTES 8.6 % (15-50); MCH 28.9 pg (26.0-34.0); MCHC 32.6 g/dL (31.0-37.0); MCV 88.6 fL (80.0-100.0); MEAN PLATELET VOLUME 9.1 fL (7.4-10.4); MONOCYTES 8.6 % (2-11); PLATELET COUNT 287 10x3/uL (130-400); RBC 3.25 10x6/uL (4.00-5.40); RDW 13.9 % (11.5-14.5); WBC 8.3 10x3/uL (4.8-10.8)
[2019-09-05 17:18] LABS: CALC OSMOLALITY 271 mosm/kg (275-300); CALCIUM 8.8 mg/dL (8.5-10.1); CARBON DIOXIDE 24.7 mmol/L (21.0-32.0); CHLORIDE - SERUM 102 mmol/L (98-107); CREATININE - SERUM 1.3 mg/dL (0.6-1.3); GLUCOSE 90 mg/dL (74-106); POTASSIUM - SERUM 3.4 mmol/L (3.5-5.1); SODIUM 136 mmol/L (136-145); UREA NITROGEN 13 mg/dL (7-18); eGFR NON AFRICAN AMERICAN 42 mL/min (90-120)
[2019-09-05 17:27] LABS: ALBUMIN 2.4 g/dL (3.4-5.0); ALKALINE PHOSPHATASE 88 U/L (30-120); ALT (SGPT) 13 U/L (10-68); AMYLASE - SERUM 69 U/L (25-115); BILIRUBIN - TOTAL 0.43 mg/dL (0.2-1.3); LIPASE 67 U/L (73-393); PROTEIN - SERUM 5.9 g/dL (6.4-8.2)
[2019-09-05 17:30] LABS: TROPONIN-I < 0.017 ng/mL (0.000-0.060)
[2019-09-05 18:41] LABS: BACTERIA MANY /hpf (NEGATIVE); BILIRUBIN NEGATIVE (NEGATIVE); EPITHELIAL CELLS OCC /hpf (0-5); GLUCOSE NEGATIVE (NEGATIVE); KETONE NEGATIVE (NEGATIVE); NITRITE POSITIVE (NEGATIVE); UROBILINOGEN NORMAL (NORMAL); WHITE CELLS - URINE >50 /hpf (NEGATIVE)
[2019-09-05 19:26] VITALS: BP 121/62
[2019-09-05 20:00] VITALS: BP 121/59
--- NOTE | 2019-09-05 20:06 | NUR ---
REPORT GIVEN TO CARLOS MEJIA
--- NOTE | 2019-09-05 20:25 | NUR ---
NS 0.9% 999 ML/HR INFUSING ON ADMIT TO FLOOR LEVAQUIN 750 ML INFUSING ON ADMIT TO FLOOR
--- NOTE | 2019-09-05 20:30 | NUR ---
ADMITTED TO ROOM FROM ER ALERT AND ORIENTIATED, REPORTS HAS HX OF CHRONES AND RECENTLY HEMORRHOIDS HAVE BEEN REALLY IRRITATED AND HURTING BADLY WHICH IS WHY SHE CAME TO ER, ORIENTIATED TO ROOM, CALL LIGHT IN REACH SEE ASSESSMENT
[2019-09-05 21:52] VITALS: BP 121/59; BMI 21.8
[2019-09-06] VITALS: BP 102/49
[2019-09-06 04:00] VITALS: BP 105/45
[2019-09-06 05:12] LABS: BASOPHILS 0.2 % (0-2); EOSINOPHILS 1.3 % (0-7); HEMATOCRIT 29.2 % (36.0-48.0); HEMOGLOBIN 9.4 g/dL (12-16); IMMATURE GRANULOCYTES 0.2 % (0-5); LYMPHOCYTES 17.4 % (15-50); MCH 28.8 pg (26.0-34.0); MCHC 32.2 g/dL (31.0-37.0); MCV 89.6 fL (80.0-100.0); MEAN PLATELET VOLUME 9.4 fL (7.4-10.4); MONOCYTES 11.2 % (2-11); NEUTROPHILS 69.7 % (40-80); PLATELET COUNT 274 10x3/uL (130-400); RBC 3.26 10x6/uL (4.00-5.40); RDW 14.2 % (11.5-14.5); WBC 6.3 10x3/uL (4.8-10.8)
[2019-09-06 06:01] LABS: ALBUMIN 2.3 g/dL (3.4-5.0); ANION GAP 13.1 mmol/L (8-16); BILIRUBIN - TOTAL 0.37 mg/dL (0.2-1.3); CALCIUM 8.7 mg/dL (8.5-10.1); CARBON DIOXIDE 23.4 mmol/L (21.0-32.0); POTASSIUM - SERUM 3.5 mmol/L (3.5-5.1); PROTEIN - SERUM 5.4 g/dL (6.4-8.2)
--- NOTE | 2019-09-06 07:10 | NUR ---
ALERT AND ORIENTED. NO C/O PAIN. NO S/S OF ACUTE DISTRESS NOTED. IV TO LEFT AC, NS INFUSING @ 125ML/HR. SITE PATENT WITHOUT REDNESS OR SWELLING. DENIES ANY NEEDS AT THIS TIME. CALL LIGHT IN REACH. WILL CONTINUE TO MONITOR.
[2019-09-06 09:24] VITALS: BP 92/45
--- NOTE | 2019-09-06 11:11 | NUR ---
I have reviewed this patient and I concur with the Shift Assessment completed by the Licensed Practical Nurse today this shift.
[2019-09-06 12:13] VITALS: BP 110/53
[2019-09-06 15:23] VITALS: Ht 167.6 cm; Wt 61.2 kg
[2019-09-06 17:39] VITALS: BP 110/55
--- NOTE | 2019-09-06 18:22 | NUR ---
ALERT AND ORIENTED. NO C/O PAIN. NO S/S OF ACUTE DISTRESS NOTED. DENIES ANY NEEDS AT THIS TIME. CALL LIGHT IN REACH. WILL CONTINUE TO MONITOR.
[2019-09-06 21:48] VITALS: BP 112/60
[2019-09-07 01:07] VITALS: BP 121/57
--- NOTE | 2019-09-07 04:00 | NUR ---
A&O X 4. AMBULATORY AD DERRICK. REPORTS PAIN 10/10 AFTER AMBULATING TO BATHROOM. WILL CONTINUE TO MONITOR.
[2019-09-07 05:19] LABS: BASOPHILS 0 % (0-2); EOSINOPHILS 0 % (0-7); HEMATOCRIT 29.1 % (36.0-48.0); HEMOGLOBIN 9.3 g/dL (12-16); IMMATURE GRANULOCYTES 0.4 % (0-5); LYMPHOCYTES 6.4 % (15-50); MCH 29.4 pg (26.0-34.0); MEAN PLATELET VOLUME 9.4 fL (7.4-10.4); MONOCYTES 0.9 % (2-11); NEUTROPHILS 92.3 % (40-80); PLATELET COUNT 279 10x3/uL (130-400); RBC 3.16 10x6/uL (4.00-5.40); RDW 14.3 % (11.5-14.5)
[2019-09-07 05:21] LABS: MCV 92.1 fL (80.0-100.0); WBC 4.7 10x3/uL (4.8-10.8)
[2019-09-07 05:40] LABS: ALBUMIN 2.1 g/dL (3.4-5.0); ANION GAP 12.3 mmol/L (8-16); BILIRUBIN - TOTAL 0.28 mg/dL (0.2-1.3); CALCIUM 8.3 mg/dL (8.5-10.1); CARBON DIOXIDE 20.9 mmol/L (21.0-32.0); CREATININE - SERUM 0.9 mg/dL (0.6-1.3); POTASSIUM - SERUM 3.2 mmol/L (3.5-5.1); PROTEIN - SERUM 5.3 g/dL (6.4-8.2)
[2019-09-07 06:00] VITALS: BP 111/54
--- NOTE | 2019-09-07 07:32 | NUR ---
PATIENT AWAKE AND ORIENTED. REQUESTS WATER. CL IN REACH. SHIFT REPORT RECEIVED. TM
[2019-09-07 09:12] VITALS: BP 120/70
--- NOTE | 2019-09-07 09:33 | MORECARE ---
CASE MANAGEMENT DISCHARGE SUMMARY PATIENT: CELENA TOMPKINS UNIT: [id number] ADM DATE: 09/05/19 AGE: 74 : [birth year] SEX: F ROOM/BED: D.2237 AUTHOR: DARIAN,DOC PHYSICIAN: REFERRING PHYSICIAN: PEDRO LANDRY MD DATE OF SERVICE: 09/07/19 Discharge Plan Patient Name: CELENA TOMPKINS Facility: [facility]:[place] : 1945 Planned Disposition: Home Anticipated Discharge Date: Discharge Date: Expected LOS: Initial Reviewer: [email or web address] Initial Review Date: 09/07/2019 Generated: 09/07/19 10:33 am Comments DCP- Discharge Planning Updated by [email or web address]: Andra Hammonds on 09/07/19 8:[address] Patient Name: CELENA TOMPKINS Admission Status: ER Accout number: [id number] Admission Date: 09-05-2019 : 1945 Admission Diagnosis: Attending: PEDRO LANDRY Current LOS: 2 Anticipated DC Date: Planned Disposition: Home Primary Insurance: MEDICARE A & B Discharge Planning Comments: CM met with patient to complete initial dc planning assessment. CM educated patient on the CM role and verbal consent given by patient to complete assessment. Patient lives at home with her spouse. At discharge patient plans to return and feels this is a safe discharge. Address and phone number verified per face sheet. CM discussed availability of home health, rehab services, and medical equipment. Patient denied known discharge needs at this time. States her has cancer and his WBC is low and she is hoping to go home today. States they are keeping people out of her house to protect her . States she has family that will take her home. CM will continue to follow and will assist as needed with dc plans/needs. Flash Welder: Andra Hammonds DCPIA - Discharge Planning Initial Assessment Updated by [email or web address]: Andra Hammonds on 09/07/19 9:28 am * Is the patient Alert and Oriented? Yes * How many steps to enter\exit or inside your home? 10/21 * PCP Dr. Gerald Mccabe * Preadmission Environment Home with Family * ADLs Independent * Equipment None * List name and contact numbers for known caregivers / representatives who currently or will assist patient after discharge: David Tompkins - spouse - [phone] * Verbal permission to speak to the caregivers and representatives has been obtained from the patient. Yes * Community resources currently utilized None * Additional services required to return to the preadmission environment? No * Can the patient safely return to the preadmission environment? Yes * Has this patient been hospitalized within the prior 30 days at any hospital? No Patient Name: CELENA TOMPKINS Page [id number] at 0933 All edits/amendments must be made on the electronic document DICTATION DATE: 09/07/19932 SERVICE TRANSFORMER REPAIR SUPERVISOR: GORDO 09/07/19932 RPT#: [id number] DC DATE: STATUS: ADM IN [facility] [address] [place] [address] END OF REPORT
[2019-09-07] MEDS ORDERED: FLORAJEN3 CAPS460 MG PO (12:13)
[2019-09-07] MEDS ORDERED: FLAGYL500 MG PO (12:14)
[2019-09-07] MEDS ORDERED: LEVOFLOXACIN500 MG PO (12:14)
[2019-09-07] MEDS ORDERED: PREDNISONE20 MG PO (12:15)
--- NOTE | 2019-09-07 12:53 | MORECARE ---
CASE MANAGEMENT DISCHARGE SUMMARY PATIENT: CELENA TOMPKINS UNIT: [id number] ADM DATE: 09/05/19 AGE: 74 : [birth year] SEX: F ROOM/BED: D.2237 AUTHOR: JOHNY FARMER PHYSICIAN: REFERRING PHYSICIAN: PEDRO LANDRY MD DATE OF SERVICE: 09/07/19 Discharge Plan Patient Name: CELENA TOMPKINS Facility: [facility]:[place] : 1945 Planned Disposition: Home Anticipated Discharge Date: Discharge Date: Expected LOS: Initial Reviewer: [email or web address] Initial Review Date: 09/07/2019 Generated: 09/07/19 1:52 pm Comments DCP- Discharge Planning Updated by [email or web address]: Andra Nasra on 09/07/19 11:[address] Patient Name: CELENA TOMPKINS Encounter No: [id number] : 1945 Primary Insurance: MEDICARE A & B Anticipated DC Date: Planned Disposition: Home External Planned Provider: : DCP follow-up note: Patient in agreement with discharge plan. No changes to plan. Case management will follow and assist as needed. Andra Hammonds DCP- Discharge Planning Updated by [email or web address]: Andra Hammonds on 09/07/19 8:[address] Patient Name: CELENA TOMPKINS Admission Status: ER Accout number: [id number] Admission Date: 09-05-2019 : 1945 Admission Diagnosis: Attending: PEDRO LANDRY Current LOS: 2 Anticipated DC Date: Planned Disposition: Home Primary Insurance: MEDICARE A & B Discharge Planning Comments: CM met with patient to complete initial dc planning assessment. CM educated patient on the CM role and verbal consent given by patient to complete assessment. Patient lives at home with her spouse. At discharge patient plans to return and feels this is a safe discharge. Address and phone number verified per face sheet. CM discussed availability of home health, rehab services, and medical equipment. Patient denied known discharge needs at this time. States her has cancer and his WBC is low and she is hoping to go home today. States they are keeping people out of her house to protect her . States she has family that will take her home. CM will continue to follow and will assist as needed with dc plans/needs. Senior Software Quality Engineer: Andra Hammonds DCPIA - Discharge Planning Initial Assessment Updated by [id number]: Andra Nasra on 09/07/19 9:28 am * Is the patient Alert and Oriented? Yes * How many steps to enter\exit or inside your home? 10/21 * PCP Dr. Gerald Mccabe * Preadmission Environment Home with Family * ADLs Independent * Equipment None * List name and contact numbers for known caregivers / representatives who currently or will assist patient after discharge: David Tompkins - [facility] - [phone] * Verbal permission to speak to the caregivers and representatives has been obtained from the patient. Yes * Community resources currently utilized None * Additional services required to return to the preadmission environment? No * Can the patient safely return to the preadmission environment? Yes * Has this patient been hospitalized within the prior 30 days at any hospital? No Last DP export: 09/07/19 8:33 a Patient Name: CELENA TOMPKINS Page 21566 at 1253 All edits/amendments must be made on the electronic document DICTATION DATE: 09/07/19 1252 TAMPING MACHINE OPERATOR: GORDO 09/07/19 1252 RPT#: [id number] DC DATE: STATUS: ADM IN [facility] [address] [place] [address] END OF REPORT
[2019-09-07 13:06] VITALS: BP 114/72
--- NOTE | 2019-09-07 13:26 | NUR ---
I have reviewed this patient and I concur with the Shift Assessment completed by the Licensed Practical Nurse today this shift.
--- NOTE | 2019-09-07 13:40 | NUR ---
SOFT BLAND DIET PER BIDGETT RETAIL WAREHOUSE SUPERVISOR
--- NOTE | 2019-09-07 13:58 | NUR ---
PATIENT UP GETTING DRESSED. WAITING ON DISCHARGE PAPERWORK AND FAMILY TO ARRIVE TO LEAVE. CL IN REACH. TM
--- NOTE | 2019-09-07 14:43 | NUR ---
RIDE HERE. IV THERAPY DISCONTINUED FROM RIGHT FOREARM TIP INTACT. DISCHARGE INSTRUCTIONS GIVEN AND PATIENT VERBALIZED UNDERSTANDING.
--- NOTE | 2019-09-09 08:18 | MORECARE ---
CASE MANAGEMENT DISCHARGE SUMMARY PATIENT: CELENA TOMPKINS UNIT: [id number] ADM DATE: 09/05/19 AGE: 74 : 46 SEX: F ROOM/BED: D.2237 AUTHOR: DARIANDOC PHYSICIAN: REFERRING PHYSICIAN: PEDOR LANDRY MD DATE OF SERVICE: 09/09/19 Discharge Plan Patient Name: CELENA TOMPKINS Facility: [facility]:[place] : 1945 Planned Disposition: Home Anticipated Discharge Date: Discharge Date: 09/07/2019 Expected LOS: Initial Reviewer: [email or web address] Initial Review Date: 09/07/2019 Generated: 09/09/19 9:18 am Comments DCP- Discharge Planning Updated by [email or web address]: Andrajosh Hammonds on 09/07/19 11:[address] Patient Name: CELENA TOMPKINS Encounter No: [id number] : 1945 Primary Insurance: MEDICARE A & B Anticipated DC Date: Planned Disposition: Home External Planned Provider: : DCP follow-up note: Patient in agreement with discharge plan. No changes to plan. Case management will follow and assist as needed. Andra Hammonds DCP- Discharge Planning Updated by [email or web address]: Andra Hammonds on 09/07/19 8:[address] Patient Name: CELENA TOMPKINS Admission Status: ER Accout number: [id number] Admission Date: 09-05-2019 : 1945 Admission Diagnosis: Attending: PEDRO LANDRY Current LOS: 2 Anticipated DC Date: Planned Disposition: Home Primary Insurance: MEDICARE A & B Discharge Planning Comments: CM met with patient to complete initial dc planning assessment. CM educated patient on the CM role and verbal consent given by patient to complete assessment. Patient lives at home with her spouse. At discharge patient plans to return and feels this is a safe discharge. Address and phone number verified per face sheet. CM discussed availability of home health, rehab services, and medical equipment. Patient denied known discharge needs at this time. States her has cancer and his WBC is low and she is hoping to go home today. States they are keeping people out of her house to protect her . States she has family that will take her home. CM will continue to follow and will assist as needed with dc plans/needs. Fisher Mussel: Andra Nasra DCPIA - Discharge Planning Initial Assessment Updated by [id number]: Andra Hammonds on 09/07/19 9:28 am * Is the patient Alert and Oriented? Yes * How many steps to enter\exit or inside your home? 10/21 * PCP Dr. Gerald Mccabe * Preadmission Environment Home with Family * ADLs Independent * Equipment None * List name and contact numbers for known caregivers / representatives who currently or will assist patient after discharge: David Tompkins - spouse - [phone] * Verbal permission to speak to the caregivers and representatives has been obtained from the patient. Yes * Community resources currently utilized None * Additional services required to return to the preadmission environment? No * Can the patient safely return to the preadmission environment? Yes * Has this patient been hospitalized within the prior 30 days at any hospital? No Last DP export: 09/07/19 11:53 a Patient Name: CELENA TOMPKINS Page [phone] at 0818 All edits/amendments must be made on the electronic document DICTATION DATE: 09/09/19817 ACCOUNT LIAISON: GORDO 09/09/19817 RPT#: [id number] DC DATE:09/07/19 STATUS: DIS IN [facility] [address] [place] [address] END OF REPORT
== END 2019-09-07 15:14 | disposition home or self-care (01) | DRG 386 ==
LOC: D.ER 16:25 → D.MS 19:37
PROVIDERS: Family Medicine; ADMIT Internal Medicine Nephrology; ATTEND Internal Medicine Nephrology
DX: K50.913 Crohn's disease, unspecified, with fistula (principal); N39.0 Urinary tract infection, site not specified; C20 Malignant neoplasm of rectum; K62.89 Other specified diseases of anus and rectum; E03.9 Hypothyroidism, unspecified; I25.10 Atherosclerotic heart disease of native coronary artery without angina pectoris; M19.90 Unspecified osteoarthritis, unspecified site; M81.0 Age-related osteoporosis without current pathological fracture; E86.0 Dehydration; D64.9 Anemia, unspecified; I51.7 Cardiomegaly; I48.91 Unspecified atrial fibrillation; R01.1 Cardiac murmur, unspecified; L30.9 Dermatitis, unspecified; N95.9 Unspecified menopausal and perimenopausal disorder; F41.9 Anxiety disorder, unspecified; E87.6 Hypokalemia

== ENCOUNTER 2019-11-30 07:36 | Outpatient (CLI) | payer MEDICARE, BC ==
[~2019-11-30] VITALS: Ht 167.6 cm; Wt 56.6 kg
--- NOTE | ~2019-11-30 | HEMODYNAMI ---
PATIENT:CELENA TOMPKINS MEDICAL RECORD: [id number] : 47 LOCATION:D.CAT ADMISSION DATE: 11/30/19 Generatedon:11/30/201910:49 Patient name: CELENA TOMPKINS Patient #: [id number] SSN: [id number] : 1945 Date of study: 11/30/2019 Page: Of Hemodynamic Procedure Report Patient Data Patient Demographics Procedure consent was obtained First Name: CELENA Gender: Female Last Name: TURNER : 1945 Middle Initial: A Age: 74 year(s) Patient #: [id number] Race: SSN: [id number] Additional ID: [id number] Contact details Address: [address] [place] [address] State: [place] City: [place] Zip code: [address] Past Medical History History of disease Date Diagnosis Comments CAD Allergies Allergen Reaction Date Comments Reported Sulfa drugs 12/26/2014 Sulfa drugs 09/11/2016 Sulfa drugs 06/02/2017 Other allergy 03/30/2018 SULFA Other allergy 11/30/2019 SULFA Admission Admission Data Admission Date: 11/30/2019 Admission Time: 7:36 Arrival Date: 11/30/2019 Arrival Time: 0:00 Admit Source: Other Insurance Payor: Medicare [place] #: [id number] Height (in.): 66 BSA: 1.64 (m2) Height (cm.): 167.64 BMI: 20.15 (kg/m2) Weight (lbs.): 124.85 Weight (kg.): 56.63 Lab Results Lab Result Date: 11/30/2019 Lab Result Time: 0:00 Biochemistry Name Units Result Min Max BUN mg/dl 20 --(----)*- 7 18 Creatinine mg/dl 1.4 --(----)*- 0.6 1.3 eGFR ml/min 39 *-(----)-- 90 120 NONAFRICAN CBC Name Units Result Min Max Hematocrit % 33.8 *-(----)-- 42 54 Hemoglobin g/dl 10.9 *-(----)-- 13.5 17.5 Procedure Procedure Types Cath Procedure Diagnostic Procedure Sedation Charges Moderate Sedation up to 15 minutes Peripheral Cath Diagnostic Procedure Supervisor Electronics Processing Peripheral Procedures AFRO (Diagnostic) Procedure Description Procedure Date Procedure Date: 11/30/2019 Procedure Start Time: 10:35 Procedure End Time: 10:45 Procedure Staff Name Function Jarad Donovan MD Performing Physician Jayshree Verdin RT Monitor Abigail Ochoa RT Scrub Mireya Cabrera RN Nurse Procedure Data Cath Procedure Fluoroscopy Diagnostic fluoroscopy Total fluoroscopy Time: 0.9 time: 0.9 min min Diagnostic fluoroscopy Total fluoroscopy dose: 55 dose: 55 mGy mGy Contrast Material Contrast Material Type Amount (ml) Isovue 370 60 Entry Location Entry Primary Successful Side Size Upsize Upsize Entry Closure Succes sful Closure Location (Fr) 1 (Fr) 2 (Fr) Remarks Device Remarks Femoral Left 5 Fr Exoseal artery Estimated blood loss: 5 ml Diagnostic catheters Device Type Used For End Catheter Placement DIAGNOSTIC UF 5Fr Procedure catheter ([id number]) Procedure Complications No complications Procedure Medications Medication Administration Route Dosage Oxygen etCO2 Nasal cannula 2 l/min Lidocaine 2% added to field 20 Heparin Flush Bag added to field 2 bags (1000units/500ml NS) 0.9% NaCl I.V. 100 ml/hr Versed I.V. 1 mg Fentanyl I.V. 50 mcg Versed I.V. 1 mg Fentanyl I.V. 50 mcg Hemodynamics Rest BSA: 1.64 (m2) HGB: 10.9 (g/dl) O2 Consumption: Estimated: 149.73 (ml/min) O2 Co nsumption indexed: Estimated:91.3 (ml/min/m) Heart Rate: 70 (bpm) Snapshots Pre Cath Intra NCS Post Cath Vital Signs Time Heart Resp SPO2 etCO2 NIBP Rhythm Pain Sedation Rate (ipm) (%) (mmHg) (mmHg) Status Level (bpm) 10:20:59 71 16 100 0 Measuring NSR 0 (11) 10(A) , No pain 10:25:24 69 16 100 11.8 128/70(0) NSR 0 (11) 10(A) , No pain 10:30:08 69 24 100 34.1 123/75(93) NSR 0 (11) 10(A) , No pain 10:31:44 68 16 100 17 127/65(90) NSR 0 (11) 10(A) , No pain 10:35:56 68 19 99 32.6 113/71(91) NSR 0 (11) 9(A) , No pain 10:40:02 67 19 100 35.5 115/69(78) NSR 0 (11) 9(A) , No pain 10:44:12 70 16 98 37 122/64(88) NSR 0 (11) 9(A) , No pain 10:48:22 69 15 100 37 112/67(83) NSR 0 (11) 10(A) , No pain Medications Time Medication Route Dose Verified Delivered Reason Notes Eff ectiveness by by 10:19:28 Oxygen etCO2 2 Jarad Buffie used for Nasal l/min Zion Cabrera RN procedure cannula 10:19:35 Lidocaine 2% added 20ml Jarad Jarad for local to vial Zion Donovan MD anesthetic field 10:19:43 Heparin Flush added 2 Jarad Jarad used for Bag to bags iZon Donovan MD procedure (1000units/500ml field NS) 10:19:52 0.9% NaCl I.V. 100 Jarad Buffie Per ml/hr Zion Cabrera RN physician 10:30:41 Versed I.V. 1 mg Jarad Buffie for Zion Cabrera RN sedation 10:30:48 Fentanyl I.V. 50 Jarad Buffie for lyric Cabrera RN sedation 10:35:54 Versed I.V. 1 mg Jarad Buffie for Zion Cabrera RN sedation 10:35:57 Fentanyl I.V. 50 Jarad Buffie for mcg Zion Cabrera RN sedation Procedure Log Time Note 9:55:14 Diagnostic Cath Status : Elective 9:55:41 Mireya Cabrera RN sent for patient. Start room use. 9:55:42 Time tracking: Regular hours (M-F 7:00 - 5:00) 9:55:47 Plan of Care:Hemodynamics will remain stable., Cardiac rhythm will remain stable., Comfort level will be maintained., Respiratory function will remain adequate., Patient/ family verbilizes understanding of procedure., Procedure tolerated without complication., Recovers from procedure without complications.. 10:07:28 Admit Source: Other 10:07:33 Procedure Status Peripheral. 10:07:52 H&P Date Dictated: 11/09/2019 Within 30 days and on chart.. 10:07:53 Pre-procedure instructions explained to patient. 10:07:54 Pre-op teaching completed and patient verbalized understanding. 10:07:56 Family in waiting room. 10:07:57 Patient NPO since Midnight. 10:09:19 Patient allergic to Other allergySULFA 10:09:23 Is the patient allergic to Iodine/contrast media? No. 10:09:25 Was the patient premedicated? N/A 10:09:37 Patient received from Pre/Post Procedure Room to CCL 1 Alert and oriented. Tansferred to table in Supine position. 10:09:40 Signed procedure consent form obtained from patient. 10:09:41 Warm blankets applied, and shea hugger turned on for patient comfort. 10:09:42 Correct patient and procedure confirmed by team. 10:09:42 ECG and BP/O2 sat monitors applied to patient. 10:10:35 Alarms reviewed by R. N. 10:10:36 Sharps counted by scrub and verified by R.N. 10:10:43 Bilateral groins area was prepped with chlora-prep and draped in sterile fashion 10:10:47 Stress Test: no; N/A ? 10:10:50 Lab results completed and on chart. 10:11:18 Lab Result : BUN 20 mg/dl 10:11:18 Lab Result : Creatinine 1.4 mg/dl 10:11:18 Lab Result : Hemoglobin 10.9 g/dl 10:11:18 Lab Result : eGFR NONAFRICAN 39 ml/min 10:11:18 Lab Result : Hematocrit 33.8 % 10:11:30 IV patent on arrival in left antecubital with 0.9% NaCl at [facility]. 10:11:35 Patient pain scale 0/10 ?. 10:11:39 Pre procedure: right dorsailis pedis pulse 1+ Palpable, but thready & weak; easily obliterated 10:12:01 Is patient on blood thinner?Unknown 10:12:08 Patient diabetic? No. 10:12:10 If diabetic: On Metformin? N/A 10:12:12 Patient not . Patient is over age 55. 10:12:13 ----Pre-sedation anethsthesia assessment.---- 10:12:17 Previous problem with sedation/anesthesia? No ? 10:12:18 Snore? Yes 10:12:20 Sleep apnea? Unknown 10:12:21 Deviated septum? No 10:12:22 Opens mouth fully? Yes 10:12:24 Sticks out tongue? Yes 10:12:26 Airway obstruction? No ? 10:12:27 Dentures? No ? 10:12:38 Use device set Femoral Dx 10:19:10 Vital chart was started 10:19:28 Oxygen 2 l/min etCO2 Nasal cannula was administered by Mireya Cabrera RN; used for procedure; Verbal order read back and verified. 10:19:35 Lidocaine 2% 20ml vial added to field was administered by Jarad Donovan MD; for local anesthetic; Verbal order read back and verified. 10:19:43 Heparin Flush Bag (1000units/500ml NS) 2 bags added to field was administered by Jarad Donovan MD; used for procedure; Verbal order read back and verified. 10:19:52 0.9% NaCl 100 ml/hr I.V. was administered by Mireya Cabrera RN; Per physician; Verbal order read back and verified. 10:22:08 ACIST Syringe (56130) opened to sterile field. 10:22:08 Bag Decanter (2002S) opened to sterile field. 10:22:09 Medline Cath Pack ([id number]) opened to sterile field. 10:22:11 DIAGNOSTIC Multipack 5Fr catheter set ([id number]) opened to sterile field. 10:22:13 SHEATH 5FR Wentworth (SLG718) opened to sterile field. 10:22:14 EMERALD Guide Wire (502-435) opened to sterile field. 10:22:17 ACIST Hand Control (83679) opened to sterile field. 10:22:17 ACIST Manifold (91873) opened to sterile field. 10:22:23 Baseline sample Acquired. 10:22:24 Full Disclosure recording started 10::27 Rhythm: sinus rhythm 10::55 --------ALL STOP TIME OUT------ 10:22:56 Final Timeout: patient, procedure, and site verified with staff and physician. All members of the team are in agreement. 10:22:58 Bilateral groins site verified by team. 10:23:04 Fire Safety Assessment: A--An alcohol-based skin anteseptic being used preoperatively., C--Open oxygen or nitrous oxide is being used., D--An ESU, laser, or fiber-optic light is being used. 10:23:07 Physical assessment completed. ASA score P 2 - A patient with mild systemic disease as per Jarad Donovan MD. 10:23:12 3b) 30-44 Moderately reduced kidney function. 10:23:15 Maximum allowable contrast dose (3.7 X eGFR X 0.75)108 ml. 10:23:20 Sedation plan: IV Moderate Sedation Medication:Versed, Fentanyl 10:25:22 Arrival Date: 11/30/2019 12:00:00 AM 10:25:25 Patient Height : 66 inches 10:25:32 Patient Weight : 124.85 lbs 10:25:39 Insurance Payor : Medicare 10:28:19 Vital chart was stopped 10:29:03 Vital chart was started 10:30:41 Versed 1 mg I.V. was administered by Mireya Cabrera RN; for sedation; Verbal order read back and verified. 10:30:48 Fentanyl 50 mcg I.V. was administered by Mireya Cabrera RN; for sedation; Verbal order read back and verified. 10:35:49 Procedure started. 10:35:54 Versed 1 mg I.V. was administered by Mireya Cabrera RN; for sedation; Verbal order read back and verified. 10:35:57 Fentanyl 50 mcg I.V. was administered by Mireya Cabrera RN; for sedation; Verbal order read back and verified. 10:35:57 Local anesthetic to left femerol artery with Lidocaine 2% by Jarad Donovan MD.INITIAL ACCESS ONLY 10:37:11 A 5 Fr sheath was inserted into the Left Femoral artery 10:37:28 A DIAGNOSTIC UF 5Fr catheter ([id number]) was advanced over the wire and used for Procedure. 10:40:08 Left leg runoff performed. 10:40:21 Injector settings: Ml/sec: 10, Volume: 20, 10:40:29 Right leg runoff performed. 10:40:34 Injector settings: Ml/sec: 10, Volume: 20, 10:41:38 Wire removed. 10:41:42 Catheter removed. 10:41:51 EXOSEAL 5Fr (EX500) opened to sterile field. 10:42:00 Sheath removed intact; hemostasis achieved with Exoseal to the Left Femoral artery. 10:42:14 Fluoroscopy time 00.90 minutes. 10:42:20 Fluoroscopy dose: 55 mGy 10:42:20 Flurop Dose total: 55 10:42:26 Dose Area Product 6539 mGy/cm. 10:42:31 Contrast amount:Isovue 370 60ml. 10:42:37 Maximum allowable dose exceeded? No. 10:42:39 Sharps counted by scrub and verified by R.N. 10:42:48 Post-op/insertion site Left Femoral artery dressed using a 4 x 4 and Tegaderm. 10:42:54 Post left femerol artery:stable, soft, clean and dry 10:42:56 Post Procedure Pulses reassessed and unchanged 10:43:00 Post procedure: right dorsailis pedis pulse 1+ Palpable, but thready & weak; easily obliterated. 10:43:06 Post-procedure physical assessment completed. ASA score P 2 - A patient with mild systemic disease as per Jraad Donovan MD. 10:43:10 Post procedure rhythm: unchanged. 10:43:12 Estimated blood loss: 5 ml 10:43:15 Post procedure instruction explained to patient.Patient verbalizes understanding. 10:43:15 Patient needs reinforcement of post procedure teaching. 10:43:43 Procedure ended.(Physican Out) 10:44:09 Procedure type changed to Cath procedure, Diagnostic procedure, Sedation Charges, Moderate Sedation up to 15 minutes, Peripheral Cath Diagnostic Procedure, Supervisor Electronics Processing Peripheral Procedures, AFRO (Diagnostic) 10:45:12 Procedure and supply charges have been captured, reviewed, submitted and are correct. 10:45:16 Procedure Complication : No complications 10:45:27 AFRO Findings: PVD: mild to moderate (<70%) 10:45:29 Operative report dictated upon procedure completion. 10:45:29 See physician's report for complete and final results. 10:45:30 Report given to Pre/Post Procedure Room. 10:45:34 Patient transfered to Pre/Post Procedure Room with Stretcher. 10:45:37 Procedure ended. 10:45:37 Full Disclosure recording stopped 10:46:58 End room use (Document Last) 10:49:32 Vital chart was stopped Device Usage Item Name Manufacture Quantity Catalog Hospital Part Current Minimal L ot# / Number Charge Number Stock Stock Serial# Code ACIST Acist 1 [id number] 073094 524231 [id number] 20 Syringe Medical (69636) Systems Inc Bag Microtek 1 [id number] 10240 966625 5 Decanter Medical Inc. () Medline Medline 1 [id number] [id number] 80834 497563 5 Cath Pack ([id number]) DIAGNOSTIC Cardinal 1 [id number] 118247 28675 876154 30 Multipack Health 5Fr catheter set ([id number]) SHEATH 5FR Terumo 1 [id number] 381208 240581 345875 5 Wentworth ([id number]) EMERALD Cardinal 1 502-455 478895 886258 314415 5 Guide Wire Health (502-455) ACIST Hand Acist 1 45687 304214 027903 763896 5 Control Medical (49669) Systems Inc ACIST Acist 1 77463 901193 536613 711948 5 Manifold Medical (20879) Systems Inc DIAGNOSTIC Cardinal 1 [id number] 951730 290735 026731 10 UF 5Fr Health catheter ([id number]) EXOSEAL 5Fr Cardinal 1 EX500 538892 [id number] 406658 10 (EX500) Health Signature Audit [place] Stage Time Signature Unsigned Intra-Procedure 11/30/2019 Jayshree Verdin 10:48:31 AM RT(R) Intra-Procedure 11/30/2019 Mireya Cabrera RN 10:49:10 AM Intra-Procedure 11/30/2019 Jarad Donovan MD 10:49:31 AM [id number] [place] [address]
[~2019-11-30 07:36] MED LIST changes: +FLAGYL500 MG PO; +FLORAJEN3 CAPS460 MG PO; +LEVOFLOXACIN500 MG PO; +PREDNISONE20 MG PO
[2019-11-30 08:05] VITALS: BP 120/59; Ht 167.6 cm; Wt 56.6 kg
[2019-11-30 08:51] LABS: BASOPHILS 0.1 % (0-2); EOSINOPHILS 0.3 % (0-7); HEMATOCRIT 33.8 % (36.0-48.0); HEMOGLOBIN 10.9 g/dL (12-16); IMMATURE GRANULOCYTES 0.2 % (0-5); LYMPHOCYTES 14.2 % (15-50); MCH 29.3 pg (26.0-34.0); MCHC 32.2 g/dL (31.0-37.0); MCV 90.9 fL (80.0-100.0); MEAN PLATELET VOLUME 9.2 fL (7.4-10.4); MONOCYTES 7.3 % (2-11); NEUTROPHILS 77.9 % (40-80); PLATELET COUNT 292 10x3/uL (130-400); RBC 3.72 10x6/uL (4.00-5.40); RDW 14.8 % (11.5-14.5); WBC 9.5 10x3/uL (4.8-10.8)
[2019-11-30 08:59] LABS: ANION GAP 10.8 mmol/L (8-16); CALCIUM 8.3 mg/dL (8.5-10.1); CREATININE - SERUM 1.4 mg/dL (0.6-1.3); POTASSIUM - SERUM 3.8 mmol/L (3.5-5.1)
--- NOTE | 2019-11-30 10:53 | NUR ---
PT ARRIVED BY STRETCHER. PLACED ON MONITORS. ASSESSMENT COMPLETED. VSS AT THIS TIME. CALL LIGHT WITHIN REACH. NO FAMILY AT BEDSIDE AT THIS TIME.
--- NOTE | 2019-11-30 11:08 | NUR ---
LEFT GROIN DRESSING C/D/I. NO S/S OF HEMATOMA NOTED. CALL LIGHT WITHIN REACH. VSS AT THIS TIME. PT RESTING COMFORTABLY.
--- NOTE | 2019-11-30 11:38 | NUR ---
PT RESTING COMFORTABLY. VSS. LEFT GROIN DRESSING C/D/I. NO S/S OF HEMATOMA NOTED. CALL LIGHT WITHIN REACH. VSS AT THIS TIME.
--- NOTE | 2019-11-30 12:00 | NUR ---
LEFT GROIN DRESSING C/D/I. NO S/S OF HEMATOMA NOTED. BILATERAL LOWER EXT WARM TO TOUCH. CAP REFILL < 3 SECS X 4 EXT. DOPPLER BILATERAL LOWER EXT PEDAL PULSES. CALL LIGHT WITHIN REACH. PT RESTING COMFORTABLY.
--- NOTE | 2019-11-30 12:30 | NUR ---
LEFT GROIN DRESSING C/D/I. NO S/S OF HEMATOMA NOTED. CALL LIGHT WITHIN REACH. HEAD OF BED INC TO 30 DEGREES. TOLERATED WELL. VSS AT THIS TIME. PT SET UP WITH SANDWICH TRAY AND DRINK. STILL DROWSY FROM SEDATION. NO OTHER NEEDS AT THIS TIME.
--- NOTE | 2019-11-30 13:20 | NUR ---
PIV D/C'D WITH CATH TIP INTACT. TOLERATED WELL. LEFT GROIN DRESSING C/D/I. NO S/S OF HEMATOMA NOTED. PT UP AND DRESSED. AMBULATED TO RESTROOM AND VOIDED WITHOUT DIFFICULTY.
--- NOTE | 2019-11-30 13:35 | NUR ---
LEFT GROIN DRESSING C/D/I. NO S/S OF HEMATOMA NOTED. DISCUSSED DISCHARGE INSTRUCTIONS WITH PT. SHE VOICED UNDERSTANDING.
--- NOTE | 2019-11-30 13:45 | NUR ---
PT TAKEN DOWN TO VEHICLE BY WHEELCHAIR. NO S/S OF DISTRESS NOTED. ALL BELONGINGS AND PAPERWORK IN HAND.
== END 2019-11-30 13:45 | disposition home or self-care (01) ==
LOC: D.CATH 07:36
PROVIDERS: ATTEND Internal Medicine Cardiovascular Disease
DX: I25.10 Atherosclerotic heart disease of native coronary artery without angina pectoris (principal); I73.9 Peripheral vascular disease, unspecified; I48.0 Paroxysmal atrial fibrillation; E78.5 Hyperlipidemia, unspecified; I10 Essential (primary) hypertension; K21.9 Gastro-esophageal reflux disease without esophagitis; F17.200 Nicotine dependence, unspecified, uncomplicated; R93.6 Abnormal findings on diagnostic imaging of limbs